=== PATIENT | female | born 1940 | race Caucasian/White ===

== ENCOUNTER → 2017-01-20 | Outpatient (CLI) | payer OTHER, BC ==
[~2017-01-20] VITALS: Ht 144.8 cm; Wt 61.3 kg
[~2017-01-20] MED LIST: ASPIR 8181 MG PO; ASPIRIN325 PO; ATIVAN1 MG; ATIVAN1 MG PO; BENADRYL25 MG PO; BIOTIN5 M1 PO; BUSPAR PO; CALCIUM; CALCIUM 500+VI1 EACH PO; CALCIUM 600 +1 EAC1 PO; CIPRO500 MG PO; CYMBALTA60 MG PO; DULERA 100 MCG/13 GM INH; FLECTOR PATCH1 EA TP; GABAPENTIN100 MG PO; GLUCOSAMINE HC500 MG; GLUCOSAMINE HC500 MG PO; HYDROXYCHLOROQ200 M1 PO; IBUPROFEN 200200 M1 PO; LASIX 40 MG TAB40 M1; LASIX 40 MG TAB40 M1 PO; LIDODERM 5%1 PATC1 TRANSDERM; LIPITOR20 MG PO; LISINOPRIL2.5 MG; LISINOPRIL5 MG PO; MACROBID 100 M100 M1 PO; MIRALAX255 GM; MUCINEX D TABL1 EACH PO; MUCINEX TA600 MG/TA2 PO; MUCINEX600 MG; NEURONTIN 300300 M1 PO; NEXIUM40 MG PO; NITROGLYCERIN0.4 MG SUBLING; ONDANSETRON HCL4 M2 PO; ONE DAILY WOME0.4 MG PO; OXYCODONE HCL15 MG PO; PEPCID20 MG PO; PERCOCET 10-321 EACH PO; PLAVIX 75 MG TA75 M1 PO; POTASSIUM20; POTASSIUM20 PO; ROBAXIN500 MG PO; SENOKOT-S1 TA1; SYNTHROID50 MCG PO; TOPROL XL25 MG PO; TYLENOL325 MG PO; UNICOMPLEX M TA1 TA1 PO; VALTREX 500 MG500 M1 PO; VALTREX 500 MG500 MG PO; VESICARE 5 MG TA5 MG PO; VESICARE10 M1 PO; VITAMIN D1000 UNI1; VITAMIN D400 UNIT PO; VITAMIN E400 UNIT PO; ZETIA10 MG PO; [UNRECOGNIZED DRUG - OTHER] PO
--- NOTE | ~2017-01-20 | HPC ---
[facility] [place] [address] PAIN MANAGEMENT CONSULTATION Name: SANDHYA NAVARRO Room #: REG MINDY VenturaJoseJaun.#: [id number] Admission: 01/20/17 Attend Phys: Matthew Stack MD Discharge: Date of : 38 Report #: [id number] THIS REPORT FOR: //name// CC: Pamela Stack DATE OF SERVICE: 01/20/2017 Followup visit for chronic back pain, postlaminectomy. The patient returns today with her sister and is here for management of high risk medication. She has ongoing pain across her low back, but has been managing this very nicely with exercise as well as with opioid medication prescribed right at the [facility] guideline of 90 mg a day. She tolerates it well, safeguards her medications, and denies side effects. She takes her medication ____ as prescribed. There have been no red flag behaviors. In addition to this, she takes gabapentin. We have been varying the dose depending on how she feels. She has more side effects with this and she does with any other medicine including dizziness. She had an episode of flu in the month of October, when she was very dizzy. We reduced her gabapentin at that time and she is fluctuating back and forth between about 600 to 900 mg a day. Instructions were provided on how to use gabapentin going forward. Today, her affect is pleasant. She does seem as depressed as she did it last visit. Her pain score is 7/10 with pain across her low back and radiating into her left leg with standing and weightbearing. Her blood pressure is 120/73, heart rate 74, respirations 16. BMI is 29. IMPRESSION: 1. Low back pain with radiculopathy, post-laminectomy. She has also had an extensive fusion followed by complications with infection 8 years ago and has recovered nicely. 2. Osteoarthritis status post knee replacement. 3. Coronary artery disease with stent. 4. Gastroesophageal reflux disease. PLAN: I reviewed medications under terms of our opioid agreement. RECOMMENDATIONS: Today, I reviewed important issues related to the use of opioids and other potent, centrally-acting medications for the treatment of pain. Rationale for the use of medication is to reduce pain and improve daily activities and function. These activities, individualized for each patient, [address] [address] PAIN MANAGEMENT CONSULTATION Name: SANDHYA NAVARRO Room #: REG [facility].#: [id number] Admission: 01/20/17 Attend Phys: Matthew Stack MD Discharge: Date of : 39 Report #: [id number] include simple activities of daily living, improvement in work capabilities, increased involvement in family and other social activities. Improvement in psychosocial elements of chronic pain were discussed in a broader conversation of wellness that included nonpharmacologic measures to manage pain, suffering and efforts to enhance well being. Remaining as physically active as possible for age and ability plays a tremendous role in the management of chronic pain. This was encouraged. We reviewed potential medication side effects, toxicities and drug interactions, employing strategies to manage problems identified. Pain medications have potential side effects, and patients should exercise caution when operating machinery or driving. We discussed in detail the dramatic increase in the Emergency Room visits, hospitalizations and deaths related to misuse and diversion of prescription pain medications in [place]. This opioid crisis in [place] requires both physicians and patients alike to safely use all medications. Safeguarding of medications by keeping them safely locked up or out of reach of others is a critical patient responsibility to ensure that medications are not diverted to others. We discussed the Center for Disease Control (CDC) guidelines for safe use of opioids and the efforts to standardize opioid prescribing to prevent complications. These include guidelines which we strive to meet. They include the standardization of various opioids to morphine milligram equivalents (MME) and also stress the use of the lowest effective dose. Efforts to remain within daily maximum dosing guidelines will also be of focus of treatment. Addiction versus therapeutic use of medication includes routine followup, single prescriber, single pharmacy and the use of random drug screens and other tools to ensure safe prescribing. A signed agreement outlying these issues has been reviewed and remains on the patient chart. Prescriptions were provided today under terms of that agreement, and followup for her is planned in 3 months. Followup visit is planned in 3 months. By: [id number] Matthew Stack MD /jose
[2017-01-20 15:04] VITALS: BP 120/73
== END | disposition home or self-care (01) ==
LOC: PAIN 07:16
DX: M96.1 Postlaminectomy syndrome, not elsewhere classified (principal); M17.9 Osteoarthritis of knee, unspecified; I25.10 Atherosclerotic heart disease of native coronary artery without angina pectoris; K21.9 Gastro-esophageal reflux disease without esophagitis; Z98.890 Other specified postprocedural states; G89.29 Other chronic pain

== ENCOUNTER → 2017-02-22 | Outpatient (CLI) | payer OTHER, BC | LOC: RAD 17:15 | DX: M19.011 Primary osteoarthritis, right shoulder (principal) ==

== ENCOUNTER → 2017-05-12 | Outpatient (CLI) | payer OTHER, BC ==
[~2017-05-12] VITALS: Ht 149.9 cm; Wt 60.0 kg
--- NOTE | ~2017-05-12 | HPC ---
[facility] [address] [address] [place] [address] PAIN MANAGEMENT CONSULTATION Name: SANDHYA NAVARRO Room #: REG [facility] Kari.#: [id number] Admission: 05/12/17 Attend Phys: Reji Nguyen DO Discharge: Date of : 39 Report #: [id number] THIS REPORT FOR: //name// CC: Pamela Nguyen HISTORY OF PRESENT ILLNESS: The patient is a delightful 76-year-old female typically treated by Dr. Matthew Stack for chronic lumbar radiculopathy status post decompressive laminectomy, post-laminectomy syndrome, axial back pain requiring complex medication management. Comorbidities include osteoarthritis, now status post right total knee arthroplasty, gastroesophageal reflux, coronary artery disease. The patient returns to pain clinic today in the company of her sister who is supportive. She has continued to use her current pain medication including oxycodone 15 mg up to 4 a day, Cymbalta effectively 400 mg t.i.d. (one 300 mg tablet and one 100 mg tablet t.i.d.). She uses Cymbalta 60 mg daily as well. Last seen in the pain clinic back in December. She did suffer a fall in January, was seen in the ER for some facial trauma, this has resolved nicely. She returns to pain clinic today noting medications are generally providing sufficient analgesia for her to participate in activities of daily living. She rates her subjective pain score 7/10, primarily throbbing, tender sensation in the low back, exacerbated with standing too long. She remains physically active, albeit modestly so. 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 PHYSICAL EXAMINATION: Shows 76-year-old female, BMI is 26.7 kilograms per meter squared. Vital signs stable as noted in the EMR. Rises from chair using armrest. Gait is little antalgic, some diffuse axial back tenderness though balance is reasonably good. Lower extremity strength is diminished, but symmetric. We reviewed the fact that opiate medications are being used to provide analgesia adequate to support activities of daily living, not attempting to achieve a specific pain score on the 0-10 Visual Analog Scale. The current opiate medications are providing sufficient analgesia to allow the patient to participate in activities of daily living. The patient is not exhibiting any aberrant behavior suggestive of drug diversion. The patient is not having any adverse reactions to medications. The patient is not suffering from daytime somnolence or mental acuity changes. The patient is managing opiate-induced constipation with appropriate tcdr-psy-kxcyfke agents and dietary considerations. The patient was counseled on concern for caution with operating a motor vehicle while using opiate medications. [address] [address] PAIN MANAGEMENT CONSULTATION Name: SANDHYA NAVARRO Room #: REG CLParth Vazquez#: [id number] Admission: 05/12/17 Attend Phys: Reji Nguyen DO Discharge: Date of : 39 Report #: [id number] A physical exam was performed and the patient's functional status was evaluated. All patients with back pain were advised against the bed rest greater than 4 days and were advised to return to normal activities. Pain score assessment was noted and the treatment plan was reviewed with the patient. All current medications, both prescribed and OTC were reviewed and reconciled on the electronic medical record. Tobacco screening was accomplished and smoking cessation was advised when indicated. BMI was noted and diet/exercise modification was recommended for all patients following outside normal parameters. I reviewed with the patient today their responsibilities to safeguard prescription medications, reviewed their responsibility to utilize medications only as prescribed by the physician. They are to seek and receive pain medications only from 1 physician group ( [facility]). They are to use 1 pharmacy and keep the clinic informed if they change pharmacies. Their responsibilities include making followup visits in a timely fashion and to avoid abrupt discontinuation of medication usage. Their responsibilities further include bringing their medications (bottles from the pharmacy with residual pills) to the visit for possible confirmation of pill counts and the patient understands it is their responsibility to submit to random drug screens to ensure both that the medications prescribed are present, and that no other controlled substances are present. All prescriptions provided today were generated electronically. ASSESSMENT: Lumbar radiculopathy status post decompressive laminectomy requiring complex medication management, stable on baseline medication. RECOMMENDATION: Renew oxycodone 15 mg 4 times a day, gabapentin one 300 mg tablet and one 100 mg together t.i.d. for a total of 40 mg t.i.d. I have taken the liberty of writing for this prescription along with Cymbalta 60 mg, all prescriptions quantity sufficient for 3 months. Follow up with Dr. Matthew Stack. <ELECTRONICALLY SIGNED> By: Reji Nguyen DO 05/13/17 1202 1615 19 Reji Nguyen DO /nt
[2017-05-12 14:59] VITALS: BP 105/62
== END | disposition home or self-care (01) ==
LOC: PAIN 07:43
DX: M54.16 Radiculopathy, lumbar region (principal); M96.1 Postlaminectomy syndrome, not elsewhere classified; M54.9 Dorsalgia, unspecified; G89.29 Other chronic pain; M19.90 Unspecified osteoarthritis, unspecified site; K21.9 Gastro-esophageal reflux disease without esophagitis; I25.10 Atherosclerotic heart disease of native coronary artery without angina pectoris; Z96.651 Presence of right artificial knee joint; Z98.890 Other specified postprocedural states; Z95.810 Presence of automatic (implantable) cardiac defibrillator; Z88.0 Allergy status to penicillin; Z88.8 Allergy status to other drugs, medicaments and biological substances; Z79.899 Other long term (current) drug therapy; Z79.82 Long term (current) use of aspirin

== ENCOUNTER 2017-11-06 16:40 | Emergency (ER) | payer OTHER, BC ==
[~2017-11-06] VITALS: Ht 152.4 cm; Wt 56.7 kg
--- NOTE | ~2017-11-06 | EKG ---
[address] [address] ELECTROCARDIOGRAM REPORT Name: SANDHYA NAVARRO Room #: [facility] M.R.#: [id number] Admission: Attend Phys: Discharge: Date of : 39 Report #: [id number] THIS REPORT FOR: //name// [facility] ED Test Date: 2017-11-06 Test Time: 16:53:51 Pat Name: SANDHYA NAVARRO Department: Room: Gender: F Curriculum Consultant: [facility] : 1940 Requested By: Barbara Garcia Order Number: [id number] MD: Measurements Intervals [place] Rate: 81 P: 63 KS: 152 QRS: -12 QRSD: 87 T: 60 QT: 457 QTc: 531 Interpretive Statements Sinus rhythm Anteroseptal infarct, old Prolonged QT interval Compared to ECG 11/28/2016 21:14:53 Prolonged QT interval now present Myocardial infarct finding still present [email or web address] By: 52 52 Epiphany MD Swapna /EPI
[~2017-11-06 16:40] MED LIST changes: +LIDODERM1 EACH TRANSDERM
[2017-11-06 18:28] LABS: HEMATOCRIT 41.1 % (37.0-47.0); HEMOGLOBIN 13.4 gm/dL (12.0-15.0); MCH 31.9 pg (26.0-34.0); MCHC 32.6 g/dL (28.0-37.0); MCV 97.9 fL (80.0-100.0); RBC 4.2 mil/uL (4.20-5.00); RDW 13.1 % (10.5-14.5); WBC 7.4 thou/uL (4.0-11.0)
[2017-11-06 18:35] LABS: ANION GAP 5 mmol/L (7-16); BUN 16 mg/dL (7-18); CALCIUM 8.6 mg/dL (8.5-10.1); CHLORIDE 102 mmol/L (98-107); CO2 31 mmol/L (21-32); CREATININE 0.6 mg/dL (0.6-1.0); GLUCOSE 90 mg/dL (74-106); POTASSIUM 3.5 mmol/L (3.5-5.1); SODIUM 138 mmol/L (136-145)
[2017-11-06 18:44] LABS: ALBUMIN 2.9 g/dL (3.4-5.0); SGOT 24 U/L (15-37); SGPT 23 U/L (30-65); TOTAL BILIRUBIN 0.2 mg/dL (<0.1-1.0); TOTAL PROTEIN 6.7 g/dL (6.4-8.2); TROPONIN-I < 0.04 ng/mL (<0.06)
[2017-11-06] MEDS ORDERED: ROBAXIN 750 MG750 M1 PO (19:22)
[2017-11-06 19:50] VITALS: BP 130/88
[2017-11-07] MEDS ORDERED: OXYCODONE HCL15 MG PO (15:18)
[2017-11-07] MEDS ORDERED: LIDODERM1 EACH TRANSDERM (15:18)
[2017-11-07] MEDS ORDERED: NEURONTIN 300300 M1 PO (15:24)
[2018-01-23] MEDS ORDERED: PROBIOTIC1 EAC1 PO (15:07)
[2018-01-23] MEDS ORDERED: LIDODERM1 EACH TRANSDERM (15:33)
[2018-01-23] MEDS ORDERED: NEURONTIN 300300 M1 PO (15:33)
[2018-01-23] MEDS ORDERED: OXYCODONE HCL15 MG PO ×2 (15:33)
[2018-04-03] MEDS ORDERED: PREDNISONE 10 M10 MG PO (14:36)
[2018-04-03] MEDS ORDERED: ROBAXIN 750 MG750 M1 PO (14:47)
[2018-04-03] MEDS ORDERED: OXYCODONE HCL15 MG PO ×5 (14:47→14:58)
[2018-04-03] MEDS ORDERED: NEURONTIN 300300 M1 PO ×2 (14:47→14:58)
[2018-04-03] MEDS ORDERED: LIDODERM1 EACH TRANSDERM ×2 (14:55→14:58)
[2018-06-08] MEDS ORDERED: LIDODERM1 EACH TRANSDERM (14:59)
[2018-06-08] MEDS ORDERED: NEURONTIN 300300 M1 PO (14:59)
[2018-06-08] MEDS ORDERED: OXYCODONE HCL15 MG PO ×2 (14:59)
[2018-06-09] MEDS ORDERED: ZANAFLEX2 MG PO (15:05)
[2018-07-24] MEDS ORDERED: NEURONTIN 300300 M1 PO (15:27)
[2018-07-24] MEDS ORDERED: OXYCODONE HCL15 MG PO ×2 (15:27)
[2018-07-24] MEDS ORDERED: ALIGN4 MG PO (15:30)
== END 2017-11-06 22:00 | disposition home or self-care (01) ==
LOC: ER 16:40
PROVIDERS: Physician Assistant
DX: M62.830 Muscle spasm of back (principal); Z88.1 Allergy status to other antibiotic agents; Z88.5 Allergy status to narcotic agent; Z88.0 Allergy status to penicillin; Z88.8 Allergy status to other drugs, medicaments and biological substances; Z87.891 Personal history of nicotine dependence

== ENCOUNTER → 2017-11-07 | Outpatient (CLI) | payer OTHER, BC ==
[~2017-11-07] VITALS: Ht 152.4 cm; Wt 56.7 kg
[~2017-11-07] MED LIST changes: +ALIGN4 MG PO; +IBU400 MG PO; +PREDNISONE 10 M10 MG PO; +PROBIOTIC1 EAC1 PO; +ROBAXIN 750 MG750 M1 PO; +ZANAFLEX2 MG PO
--- NOTE | ~2017-11-07 | HPC ---
[facility] [address] [address] [address] PAIN MANAGEMENT CONSULTATION Name: SANDHYA NAVARRO Room #: REG [facility]..#: [id number] Admission: 11/07/17 Attend Phys: Matthew Stack MD Discharge: Date of : 39 Report #: [id number] THIS REPORT FOR: //name// CC: Pamela Baptiste MD DATE OF SERVICE: 11/07/2017 A 45 minute follow up for counseling regarding chronic pain, medication and depression. The patient is in the clinic today with her sister. She is here today for renewal of her pain medication. She was in the hospital Emergency Room just 24 hours ago with back pain. It was felt to be musculoskeletal and she was given a muscle relaxant, which she has not filled. She had questions about Robaxin, which I answered for her today. She has been stable now for many years on an opioid agreement, which includes oxycodone 15 mg 4 times daily for a total of 60 mg or 90 morphine milligrams. In addition, she takes Cymbalta 60 mg daily and gabapentin 300 mg t.i.d. and this has been helpful. Today, her pain that was present during her visit to the Emergency Room yesterday is much improved. She describes it as a 7, but it is across the mid back. Yesterday, it was radiating around into the anterior chest wall that no longer is present. She describes it as an aching and is not affected much by position. There is some tenderness in the muscle, but this does not appear to be a compression fracture by history, x-ray or exam as noted below. The patient was distraught today regarding family matters. Her son who is 48, has been living with her up until the last year or two. He is very successful working for ___, but has now purchased his own home, moved out and has been living with a male psychiatric aides teacher. The patient was very upset about this move and had a long discussion today. I provided her with Kenny Silverman's poem on children to help as we discussed the difficulties and concerns with children even at the age of 48. PQRS review, the patient does suffer from osteoarthritis involving the knees and hips. She does not use tobacco. She does take opioids 90 morphine milligram equivalents per day within the CDC guideline for chronic intractable use by a pain specialist and the contract that she has signed was reviewed, the CDC guidelines and opioid crisis discussed. She is a fall risk, having fallen yesterday at the Emergency Room getting out of the car even with the assistance of her sister. We have talked about cautious use of all of her medications particularly the new medication recommended by the Emergency Room. I reviewed [facility] [address] [place] [address] PAIN MANAGEMENT CONSULTATION Name: SANDHYA NAVARRO Room #: REG MINDY Pierce.#: [id number] Admission: 11/07/17 Attend Phys: Matthew Stack MD Discharge: Date of : 39 Report #: [id number] all of her medications. We discussed her chronic medical conditions, which have included treatment in the past for hypertension, which is currently well controlled. She has not established with a new primary care physician since Dr. Urbina has moved on and she has asked for some assistance in locating a physician in the [facility]. PHYSICAL EXAMINATION: She is depressed and distraught today about personal issues described above. Blood pressure 127/63, heart rate 67 and O2 sat is 96%. BMI is 24.4. She is able to independently move from sitting to standing position and walks with a stable gait. She has pain across her lumbosacral segment. There is no pain along the thoracic or lumbar spine to percussion to suggest compression fracture. There is mild muscle tension noted. Straight leg raising bilaterally is positive for some mild radiculopathy. She has some generalized weakness of the lower extremities. IMPRESSION: 1. Chronic intractable back pain, post-laminectomy syndrome. 2. Management of opioid medication. 3. Chronic depression and anxiety. 4. Status post right knee replacement. RECOMMENDATIONS: 1. Continue on current medications as prescribed. 2. Counseling regarding resolution of family issues. 3. Follow up in the pain clinic in 3 months. This is a 45 minute consultation. <ELECTRONICALLY SIGNED> By: Matthew Stack MD 12/21/17 1640 [id number] Matthew Stack MD /nt
[2017-11-07 14:49] VITALS: BP 127/63
== END ==
LOC: PAIN 07:07
DX: M96.1 Postlaminectomy syndrome, not elsewhere classified (principal); F11.90 Opioid use, unspecified, uncomplicated; F32.9 Major depressive disorder, single episode, unspecified; F41.9 Anxiety disorder, unspecified; Z96.651 Presence of right artificial knee joint

== ENCOUNTER → 2017-12-01 | Outpatient (CLI) | payer OTHER, BC | LOC: RAD 17:03 | DX: R05 Cough (principal); J45.909 Unspecified asthma, uncomplicated ==

== ENCOUNTER → 2017-12-14 | Outpatient (CLI) | payer OTHER, BC | LOC: RAD 15:12 | DX: J45.909 Unspecified asthma, uncomplicated (principal) ==

== ENCOUNTER → 2018-01-23 | Outpatient (CLI) | payer OTHER, BC ==
[~2018-01-23] VITALS: Ht 152.4 cm; Wt 56.9 kg
[~2018-01-23] MED LIST changes: -ALIGN4 MG PO; -IBU400 MG PO; -PREDNISONE 10 M10 MG PO; -ZANAFLEX2 MG PO
--- NOTE | ~2018-01-23 | HPC ---
[facility] [address] [address] PAIN MANAGEMENT CONSULTATION Name: SANDHYA NAVARRO Room #: REG Par[facility] M..#: [id number] Admission: 01/23/18 Attend Phys: Matthew Stack MD Discharge: Date of : 39 Report #: [id number] THIS REPORT FOR: //name// CC: Matthew Baptiste MD DATE OF SERVICE: 01/23/2018 Followup visit for post-laminectomy syndrome. The patient presents back to the pain clinic today for counseling regarding her chronic pain, renewal of her medication. We spent a good deal of time today talking about her depression. She suffered with depression since the of her and after her surgery, which was complicated and was also unfortunately dealt with complications of infection. It took her nearly a year to improve and she has remained sad and limited somewhat since that time. She does have the ongoing support of her sister and her torie in [place] has also been of comfort to her. She worries about many things having to do with her health and also worries about her son, which was discussed at last visit and we discussed some about those things today as well. These are all part of the biopsychosocial components of pain. Her physical pain is continued along the back for the most part. The pain is described as a deep aching sensation along her scar. She has less pain into her legs at this time. She scores her pain as an 8/10, worsened by prolonged standing. She uses heat in addition to medication. PHYSICAL EXAMINATION: GENERAL: She is a pleasant, but obviously depressed female. VITAL SIGNS: Blood pressure 108/73, heart rate is 86, respirations 16, oxygen saturation 100% on room air. BMI 24.5. CHEST: Clear to auscultation with no wheezing. CARDIAC: Rhythm is regular with a slight murmur heard in diastole. ABDOMEN: Soft. MUSCULOSKELETAL: The scar across her back is tender that radiates up her back actually between the scapula with tenderness throughout. She has pain also into her low back and into her hips and legs. Straight leg raising is positive. She is able to walk independently with a stable gait. She is a fall risk. IMPRESSION: 1. Chronic back pain, post-laminectomy with complications. 2. Management of opioid medication. She is at the upper levels of the CDC guideline at 90 morphine milligram equivalents per day. 3. [place] [address] PAIN MANAGEMENT CONSULTATION Name: SANDHYA NAVARRO [id number] Admission: 01/23/18 Attend Phys: Matthew Stack MD Discharge: Date of : 38 Report #: [id number] 4. Osteoarthritis, status post right knee replacement. PLAN: 1. I renewed medication for her oxycodone 15 mg, which she takes 4 times daily for a total of 60 mg of oxycodone equaling 90 morphine equivalents. 2. Counseling regarding depression. Suggested that she discuss with Dr. Baptiste, clinical psychologist or psychiatrist and perhaps rotation to a different antidepressant. 3. Follow up in the pain clinic in 3 months. Important issues regarding the opioid crisis, CDC guideline and her use of medication in the safest possible manner were discussed before discharge. We will follow up in 3 months and I will discuss her case with Dr. Baptiste. By: [id number] Matthew Stack MD /nt
[2018-01-23 15:09] VITALS: BP 108/73
== END ==
LOC: PAIN 07:25
DX: G89.29 Other chronic pain (principal); M96.1 Postlaminectomy syndrome, not elsewhere classified; F32.9 Major depressive disorder, single episode, unspecified; F41.9 Anxiety disorder, unspecified; F11.90 Opioid use, unspecified, uncomplicated; M19.90 Unspecified osteoarthritis, unspecified site; Z96.651 Presence of right artificial knee joint

== ENCOUNTER → 2018-03-30 | Outpatient (CLI) | payer OTHER, BC ==
[~2018-03-30] MED LIST changes: +PREDNISONE 10 M10 MG PO
== END ==
LOC: RAD 13:37
DX: M47.812 Spondylosis without myelopathy or radiculopathy, cervical region (principal); R06.00 Dyspnea, unspecified

== ENCOUNTER → 2018-04-03 | Outpatient (CLI) | payer OTHER, BC ==
[~2018-04-03] VITALS: Ht 152.4 cm; Wt 55.6 kg
--- NOTE | ~2018-04-03 | HPC ---
[facility] [address] [address] PAIN MANAGEMENT CONSULTATION Name: SANDHYA NAVARRO Room #: REG Parth BeniJaun.#: [id number] Admission: 04/03/18 Attend Phys: Matthew Stack MD Discharge: Date of : 38 Report #: [id number] THIS REPORT FOR: //name// CC: Matthew Baptiste DATE OF SERVICE: 04/03/2018 Followup visit for post-laminectomy syndrome. The patient is here today a little bit early for her renewals, but the appointments are tight towards the end of the month, so they are here early. There have been no significant changes since I last saw her in January. She is now following with Dr. Missael Baptiste, very pleased with the excellent attention and care that he is providing her. She complains of back pain at a level of 8/10 despite the use of her medications, but is grateful for the medications. She is able to get around, do her exercise and is active in the home. 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 Her depression seems better today. We talked about her family including her son who will soon be moving out. PQRS shows that she has a history of osteoarthritis and spondylosis. She has a BMI of 23.9 and has had some recent weight loss. She will continue to follow this with Dr. Baptiste. She is not a fall risk and has not fallen in the last 3 months. She remains on Plavix and was counseled about cautious use of any medications that may worsen her potential for bleeding. She should avoid nonsteroidal anti-inflammatory drugs. She is also treated for hypertension. She is on an opioid agreement for the higher doses of medications that I provide for her. We reviewed all medications in terms of our opioid agreement today as well as the CDC guideline. PHYSICAL EXAMINATION: GENERAL: Pleasant female, less depression noticed today. VITAL SIGNS: Are as noted above and BMI. CHEST: Clear today. She has recently been treated by Dr. Lopez. CARDIAC: Rhythm is regular, slight diastolic murmur. ABDOMEN: Soft. MUSCULOSKELETAL: Scar in the back with tenderness consistent with her post-laminectomy syndrome. IMPRESSION: 1. Post-laminectomy syndrome, chronic back pain with some radiculopathy. [facility] [address] [place] [address] PAIN MANAGEMENT CONSULTATION Name: SANDHYA NAVAROR Room #: REG [facility].#: [id number] Admission: 04/03/18 Attend Phys: Matthew Stack MD Discharge: Date of : 38 Report #: [id number] 2. Management of opioid medication in terms of the CDC guidelines. She is right about 90 morphine milligram equivalents per day. 3. Chronic and recurring depression and anxiety. She is stable today. 4. Osteoarthritis, status post knee replacement. PLAN: I renewed her medication in terms of our agreement. I plan to see her back in late June. Drug testing will be done at my discretion. By: [id number] MD elieser Riddle
[2018-04-03 14:27] VITALS: BP 112/57
== END ==
LOC: PAIN 07:39
DX: G89.29 Other chronic pain (principal); M54.5 Low back pain; M54.16 Radiculopathy, lumbar region; M16.0 Bilateral primary osteoarthritis of hip; F11.90 Opioid use, unspecified, uncomplicated; Z79.899 Other long term (current) drug therapy; Z87.891 Personal history of nicotine dependence

== ENCOUNTER → 2018-05-10 | Outpatient (CLI) | payer OTHER, BC | LOC: RAD 17:39 | DX: M19.012 Primary osteoarthritis, left shoulder (principal); R10.9 Unspecified abdominal pain; R19.7 Diarrhea, unspecified; R53.1 Weakness ==

== ENCOUNTER 2018-06-03 14:47 | Emergency (ER) | payer OTHER, BC ==
[~2018-06-03] VITALS: Ht 144.8 cm; Wt 52.2 kg
[2018-06-03] MEDS ORDERED: IBU400 MG PO (16:28)
[2018-06-03] MEDS ORDERED: ROBAXIN500 MG PO (16:28)
[2018-06-08] MEDS ORDERED: OXYCODONE HCL15 MG PO ×2 (14:59)
[2018-06-08] MEDS ORDERED: NEURONTIN 300300 M1 PO (14:59)
[2018-06-08] MEDS ORDERED: LIDODERM1 EACH TRANSDERM (14:59)
== END 2018-06-03 17:14 ==
LOC: ER 14:47
DX: M25.512 Pain in left shoulder (principal); M62.830 Muscle spasm of back; G89.29 Other chronic pain; M54.9 Dorsalgia, unspecified; Z87.891 Personal history of nicotine dependence; Z88.1 Allergy status to other antibiotic agents; Z88.5 Allergy status to narcotic agent; Z88.4 Allergy status to anesthetic agent; Z88.8 Allergy status to other drugs, medicaments and biological substances; Z88.0 Allergy status to penicillin; Z91.048 Other nonmedicinal substance allergy status; Z95.0 Presence of cardiac pacemaker

== ENCOUNTER → 2018-06-08 | Outpatient (CLI) | payer OTHER, BC ==
[~2018-06-08] VITALS: Ht 152.4 cm; Wt 56.4 kg
[~2018-06-08] MED LIST changes: +IBU400 MG PO; +ZANAFLEX2 MG PO
--- NOTE | ~2018-06-08 | HPC ---
[facility] [place] [address] PAIN MANAGEMENT CONSULTATION Name: SANDHYA NAVARRO Room #: REG Parth Pierce.#: [id number] Admission: 06/08/18 Attend Phys: Matthew Stack MD Discharge: Date of : 38 Report #: [id number] THIS REPORT FOR: //name// CC: Matthew Baptiste MD DATE OF SERVICE: 06/08/2018 Followup visit for osteoarthritis, chronic low back pain, post-laminectomy syndrome. The patient was recently in the Emergency Room for pain in her shoulder. It came on rather abruptly in the middle of the night. It was bad enough that her sister called 911. There was some concern at first that this may be a sign of a coronary event; however, all workup was negative and it was determined to be a flare of right shoulder osteoarthritis. She was referred to Dr. Kranthi Dalal. She saw Dr. Dalal who assessed her and felt that she had inflammation of the shoulder and bursa and his nurse provided her a shoulder injection, which has provided some improvement. Her number one complaint; however, has always been her low back pain and she has had radiculopathy. Her history of back surgery and complications is well documented in this record. That was many years ago and she is now recovered, but left with post-laminectomy pain with radiculopathy. She suffers from depression, but seems good today. Her son is moving out of her home as soon as his house is remodeled and will be just down the street from her. We talked about this blessing. She also has the blessing of her sister who is constantly at her side and provides both moral and physical support. PQRS review shows that she is 5 feet tall, 122 pounds for a BMI of 23.9. Blood pressure 112/57, heart rate 71 and respirations 16. Pain intensity is 8/10. She is not a fall risk at this time. She is on a blood thinner, Plavix. She has a history of hypertension and under treatment by Dr. Baptiste. She is on an opioid agreement with her current clinic and is at low risk for addiction. PHYSICAL EXAMINATION: GENERAL: Continuation of physical exam reveals a pleasant female without depression, anxiety or overmedication. She was loquacious, outgoing and pleasant today. CHEST: Clear. [facility] [address] [place] [address] PAIN MANAGEMENT CONSULTATION Name: SANDHYA NAVARRO Room #: REG MINDY VenturaJoseJaun.#: [id number] Admission: 06/08/18 Attend Phys: Matthew Stack MD Discharge: Date of : 39 Report #: [id number] CARDIAC: Rhythm is regular with slight diastolic murmur. ABDOMEN: Soft. MUSCULOSKELETAL: She has tenderness in her left shoulder, but range of motion with abduction and external and internal rotation is quite good. She has tenderness across her scar from the low back surgery and positive straight leg raising discomfort bilaterally in the lower extremities. IMPRESSION: 1. Post-laminectomy syndrome with radiculopathy. 2. Osteoarthritis involving bilateral knees, status post knee replacement and now with recent exacerbation of left shoulder pain, likely osteoarthritis and degenerative. 3. Management of high risk medication under terms of an opioid agreement. Her role in safeguarding medication was reviewed. We also checked her prescribing in the [place] board of pharmacy PDMP. There have been no additional prescriptions for narcotics other than those provided through our clinic. Dr. Baptiste provides all her other medications. PLAN: I renewed her medication for her under terms of written opioid agreement. She uses gabapentin 300 mg 3 times a day from myself as well as oxycodone 15 mg 4 times a day for MME of 90. She has no significant side effects other than mild constipation. Dr. Baptiste provides her with lorazepam and although that combination can be concerning, she has been on it long enough that she has shown good tolerance and there have been no complications with its use for anxiety. Followup visit is planned in 3 months. All medications renewed. By: [id number] 0551 Matthew Stack MD /nt
[2018-06-08 14:38] VITALS: BP 104/60
== END ==
LOC: PAIN 07:18
DX: M54.16 Radiculopathy, lumbar region (principal); M17.0 Bilateral primary osteoarthritis of knee; Z79.899 Other long term (current) drug therapy

== ENCOUNTER → 2018-07-24 | Outpatient (CLI) | payer OTHER, BC ==
[~2018-07-24] VITALS: Ht 162.6 cm; Wt 54.8 kg
[~2018-07-24] MED LIST changes: +ALIGN4 MG PO
--- NOTE | ~2018-07-24 | HPC ---
[facility] [address] [place] [address] PAIN MANAGEMENT CONSULTATION Name: SANDHYA NAVARRO Room #: REG Parth Kari.#: [id number] Admission: 07/24/18 Attend Phys: Matthew Stack MD Discharge: Date of : 39 Report #: [id number] THIS REPORT FOR: //name// CC: Matthew Baptiste DATE OF SERVICE: 07/24/2018 Followup visit for post-laminectomy syndrome. The patient is here today with her ever present sister, Maria Esther. She is doing fairly well. She has lost some weight. Her BMI is down to 20.7 now. She should not lose any additional weight. She reports that her pain score is a 6/10, which actually is a fairly reasonable number for her. She has been undergoing physical therapy for her shoulders and has made some additional improvement. I noted that she had made improvement at her last visit and I noted today that her pain is less and her range of motion in the right shoulder is much better. She continues to complain of low back pain, however, this is something that she has now become accustomed to and is well tolerant of. We will do course aggressively provided with medication to allow her to tolerate this. Her depression is better today. PQRS REVIEW: The patient is a pleasant female, no signs of depression or anxiety. She is 5 feet 4 inches, 120 pounds for a BMI of 20.7. She does have a history of osteoarthritis. Her blood pressure 105/55, heart rate 77, respirations 14, O2 sat 97%. Pain intensity 6/10. She is a fall risk and has fallen in the last 3 months. She needs her sister's stable arm to help her. She needs to be cautious because she is on the blood thinner, Plavix. She has a history of hypertension. She is at low risk for addiction, but has signed an opioid agreement on September 2016 and we reviewed the importance of safeguarding all medications. SOCIAL HISTORY: She denies alcohol and tobacco. IMPRESSION: 1. Post-laminectomy syndrome with radiculopathy. 2. Osteoarthritis, bilateral knees and shoulders. Her shoulders have responded nicely to physical therapy. 3. Management of high risk medications under terms of an opioid agreement. I reviewed her responsibilities and safeguarding her medications. We reviewed [address] [address] PAIN MANAGEMENT CONSULTATION Name: SANDHYA NAVARRO Room #: REG [facility] Kari.#: [id number] Admission: 07/24/18 Attend Phys: Matthew Stack MD Discharge: Date of : 39 Report #: [id number] our opioid agreement, the CDC guidelines. I have checked on the [place] prescription drug monitoring program and there are no unsuspected entries. Followup visit planned in 3 months. RECOMMENDATIONS: At discharge, she was given prescriptions for gabapentin 300 mg 3 times daily, OxyIR 15 mg 4 times daily. By: [id number] MD elieser Riddle
[2018-07-24 14:57] VITALS: BP 105/55
== END ==
LOC: PAIN 07:40
DX: M96.1 Postlaminectomy syndrome, not elsewhere classified (principal); M17.0 Bilateral primary osteoarthritis of knee; M19.012 Primary osteoarthritis, left shoulder; M19.011 Primary osteoarthritis, right shoulder; Z79.899 Other long term (current) drug therapy

== ENCOUNTER 2018-08-16 17:47 | Emergency (ER) | payer OTHER, BC ==
[~2018-08-16] VITALS: Ht 147.3 cm; Wt 51.9 kg
== END 2018-08-16 19:11 | disposition home or self-care (01) ==
LOC: ER 17:47
DX: S09.90XA Unspecified injury of head, initial encounter (principal); I25.2 Old myocardial infarction; G89.29 Other chronic pain; Z95.810 Presence of automatic (implantable) cardiac defibrillator; Z79.899 Other long term (current) drug therapy; Z88.0 Allergy status to penicillin; Z88.1 Allergy status to other antibiotic agents; Z88.5 Allergy status to narcotic agent; Z88.8 Allergy status to other drugs, medicaments and biological substances; Z87.891 Personal history of nicotine dependence; W18.09XA Striking against other object with subsequent fall, initial encounter; Y93.01 Activity, walking, marching and hiking; Y92.89 Other specified places as the place of occurrence of the external cause; Y99.8 Other external cause status

== ENCOUNTER → 2018-08-17 | Outpatient (CLI) | payer OTHER, BC ==
[~2018-08-17] VITALS: Ht 162.6 cm; Wt 52.0 kg
--- NOTE | ~2018-08-17 | HPC ---
[facility] [address] [place] [address] PAIN MANAGEMENT CONSULTATION Name: SANDHYA NAVARRO Room #: REG MINDY Kari.#: [id number] Admission: 08/17/18 Attend Phys: Matthew Stack MD Discharge: Date of : 39 Report #: [id number] THIS REPORT FOR: //name// CC: Matthew Baptiste DATE OF SERVICE: 08/17/2018 Followup visit for chronic intractable pain. The patient and her sister, Lisseth, are here today at a special request for followup visit because she fell. She was getting up from the table, taking some dishes to kitchen when she tripped on a carpet. She fortunately landed forward, striking her left gnosticism area. Lisseth states that it was nearly miraculous. When she fell, she landed directly on a pillow including her head. There was no immediate sequela and in fact the patient asked to get up and continue washing the dishes, but a more cautious position was taken by her sister due to her use of Plavix. Over the course of next 24 hours, she was observed carefully, but ultimately went to the Emergency Room for a CAT scan, which proved to be negative. At the time of that visit, she was complaining of bit of shoulder pain, but that has resolved. She has been taking pain medication carefully and cautiously under terms of an opioid agreement. We had a long discussion today about her, also chronic use of clonazepam for anxiety disorder. This began almost 10 years ago. It has been helpful. With the use of that, she seems to be more calm. She does not cry as often. She seems relaxed throughout the day and we feel it plays an important role. We understand that there is an interaction between benzodiazepines and opioids of which she is on both; however, she has shown good tolerance to the effects with no evidence of overmedication sedation. It was clear after discussion of her fall that it was not related to medication. I think it is reasonable for her to continue on the combination. I reviewed all of her medications today. She has had no changes. ALLERGIES: Reviewed as well. She has been a fall risk as noted and we need to be cautious. She needs to be cautious due to a scissor gait, which is noted on physical exam. PHYSICAL EXAMINATION: VITAL SIGNS: Her blood pressure is 104/42. She may have some slight orthostasis. She is instructed also to get up and down slowly. Pain intensity is a 3. Her blood thinner, Plavix is noted. She was told to be cautious with any falls [facility] [address] [place] [address] PAIN MANAGEMENT CONSULTATION Name: SANHDYA NAVARRO Room #: REG [facility]#: [id number] Admission: 08/17/18 Attend Phys: Matthew Stack MD Discharge: Date of : 39 Report #: [id number] because Plavix can cause bleeding that might not stop. Her hypertension is currently well controlled. Her opioids are doing a good job and she needs no change in dose at this time. Her opioid agreement was signed on 09/29/2016. She is at very low risk for addiction. She has osteoarthritis of both hips, knees and shoulders. IMPRESSION: 1. Chronic intractable pain with multiple pain generators. 2. Anxiety disorder, chronic. 3. Post-laminectomy syndrome. 4. Recent fall with no evidence of injury. 5. Management of high risk medications. 6. Hypertension. PLAN: Follow up in the pain clinic in 3 months. Follow up with Dr. Missael Baptiste for all primary care issues. By: 1647 [id number] Matthew Stack MD /nt
[2018-08-17 14:57] VITALS: BP 104/42
== END ==
LOC: PAIN 06:59
DX: G89.4 Chronic pain syndrome (principal); M96.1 Postlaminectomy syndrome, not elsewhere classified; F41.8 Other specified anxiety disorders; I10 Essential (primary) hypertension; W19.XXXA Unspecified fall, initial encounter; Z79.899 Other long term (current) drug therapy

== ENCOUNTER 2018-09-13 16:36 | Emergency (ER) | payer OTHER, BC ==
[~2018-09-13] VITALS: Ht 144.8 cm; Wt 51.7 kg
[2018-09-13 19:33] VITALS: BP 108/61
== END 2018-09-13 19:34 | disposition home or self-care (01) ==
LOC: ER 16:36
DX: R07.81 Pleurodynia (principal); G89.29 Other chronic pain; M54.9 Dorsalgia, unspecified; Z87.891 Personal history of nicotine dependence; Z88.1 Allergy status to other antibiotic agents; Z88.5 Allergy status to narcotic agent; Z88.4 Allergy status to anesthetic agent; Z88.0 Allergy status to penicillin; Z91.048 Other nonmedicinal substance allergy status; Z95.0 Presence of cardiac pacemaker; W01.0XXA Fall on same level from slipping, tripping and stumbling without subsequent striking against object, initial encounter; Y92.89 Other specified places as the place of occurrence of the external cause; Y93.89 Activity, other specified; Y99.8 Other external cause status

== ENCOUNTER → 2018-10-03 | Outpatient (CLI) | payer OTHER, BC ==
[~2018-10-03] VITALS: Ht 162.6 cm; Wt 53.1 kg
--- NOTE | ~2018-10-03 | HPC ---
[facility] [address] [address] PAIN MANAGEMENT CONSULTATION Name: SANDHYA NAVARRO Room #: REG MINDY Pierce.#: [id number] Admission: 10/03/18 Attend Phys: Matthew Stack MD Discharge: Date of : 39 Report #: [id number] THIS REPORT FOR: //name// CC: Matthew Baptiste DATE OF SERVICE: 10/03/2018 CHIEF COMPLAINT: Followup visit for concerns regarding left knee. The patient is here today because she was frightened that her left knee had been swelling and was painful. She is here today with her sister. She says the pain began worsening 2 days ago and is now constant and throbbing. She has been relieving it with elevation and ice. Pain is worse by weightbearing. She continues to exercise, however. She uses a stationary bike. This has been one of the keys to her remaining out of the hospital and functional. She is tearful today. Her functional assessment tool is 35/70. She has a lot of anxiety and history of depression. MEDICATIONS: Reviewed. Align, oxycodone 15 mg 4 times daily for chronic use and gabapentin for pain. All other medications remain unchanged. Other centrally acting medications include Cymbalta for depression and pain at 60 mg, BuSpar for anxiety 10 mg daily, lorazepam 1 mg p.r.n. 4 times daily. Her combination of benzodiazepine and opioid have been taken safely for many years. PHYSICAL EXAMINATION: Her affect is depressed and anxious. Her blood pressure is 135/85. Her heart rate is 72. Her BMI is 20.1. She is able to move from sitting to standing position, but needs assistance in walking and would be considered a fall risk. Tenderness of the knee is noted, but there is very minimal swelling at this time. She has some crepitus with extension and flexion. She denies use of tobacco or alcohol. She is on an opioid agreement well established. She understands her responsibilities. She is on no blood thinners at this time. IMPRESSION: Chronic pain, multiple pain generators including low back, post-laminectomy syndrome, chronic cervicalgia, left shoulder pain and left knee pain with swelling and tenderness. Osteoarthritis. Management of high risk medication. Fifteen minute followup visit today reassuring her that her current treatment in conservative fashion is reasonable and we will plan on seeing her back if the [address] [address] PAIN MANAGEMENT CONSULTATION Name: SANDHYA NAVARRO Room #: REG CL Kari.#: [id number] Admission: 10/03/18 Attend Phys: Matthew Stack MD Discharge: Date of : 39 Report #: [id number] pain worsens. Cortisone injection of the knee joint can be considered if she does not improve over the next few days. By: 1612 05 Matthew Stack MD /nt
== END ==
LOC: PAIN 10:00
DX: M54.5 Low back pain (principal); M54.2 Cervicalgia; M25.512 Pain in left shoulder; M25.562 Pain in left knee; G89.29 Other chronic pain; Z79.899 Other long term (current) drug therapy

== ENCOUNTER → 2018-10-31 | Outpatient (CLI) | payer OTHER, BC ==
[~2018-10-31] VITALS: Ht 144.8 cm; Wt 53.7 kg
[2018-10-31 13:06] VITALS: BP 112/65
--- NOTE | 2018-10-31 13:07 | NUR ---
Pain Clinic Assessment: 1. History of Osteoarthritis: yes History of Rheumatoid Arthritis: Not Applicable 2. Height: 4 ft. 9 in. 144.8 cm. Weight: 118.4 lb. oz. 53.706 kg. Patient's BMI: 25.6 3. Vital Signs: BP: 112/65 Pulse: 89 Resp: 18 Temp: 02 Sat: 99 ECG Mon: 4. Pain Intensity: 5 5. Fall Risk: Dizziness: N Needs help standing or walking: Y Fallen in the last 3 months: N Fall risk comments: 6. Patient on Blood Thinner: Clopidogrel Bisulf(Plavix 7. History of Hypertension: Y 8. Opioid Therapy greater than 6 weeks: Y Opiate Contract Signed: 09/29/16 9. Risk Assessment Tool Provided: LOW 10. Functional Assessment Tool: 11. Recreational Drug Use: Never Drug Type: Tobacco Use: Former Smoker Tobacco Type: Amount or Packs/day: How Many Years: Alcohol Use: No Frequency: Quant:
--- NOTE | 2018-11-01 08:00 | HPC ---
[facility] [address] [place] [address] PAIN MANAGEMENT CONSULTATION Name: RAMONSANDHYA Room #: REG [facility]#: [id number] Admission: 10/31/18 Attend Phys: Hoda Ballard Discharge: Date of : 39 Report #: [id number] THIS REPORT FOR: //name// CC: Hoda Baptiste DATE OF SERVICE: 10/31/2018 CHIEF COMPLAINT: Left knee pain, chronic back pain status post laminectomy syndrome. HISTORY OF PRESENT ILLNESS: The patient is a very pleasant 78-year-old female, returns to the pain clinic today for followup of her opioid medications. She is here today with Lilia, her sister. She tells me that she has been doing wonderful since Dr. Stack has put her on these medicines of her oxycodone up to 4 times a day and her gabapentin and lorazepam. She tells me that her pain score today is 5, which is very well in her mind and controlling her pain. She tells me that her pain is mostly in her low back and her left knee. It is a constant, throbbing pain. She denies any constipation. She tells me that she does take several different medications that control her constipation and she does not have daytime sleepiness. She would like a refill of her medications today. CURRENT ALLERGIES: TAPE, PENICILLIN, MORPHINE, CODEINE, NEOMYCIN, CLINDAMYCIN, BACTRIM, BACITRACIN, FENTANYL, DEMEROL. CURRENT LIST OF MEDICATIONS: OxyIR 15 mg 4 times a day, gabapentin 300 mg b.i.d., Lidoderm patch, Zetia, Plavix 75 mg daily, calcium, Caltrate, vitamin D3, Dulera, Pepcid, Mucinex, Benadryl, Valtrex, Cymbalta, VESIcare, Plaquenil, Nexium, aspirin, biotin, glucosamine, lisinopril, lorazepam, Lasix, potassium, Lipitor, folic acid, BuSpar, Synthroid, metoprolol. PQRS: The patient has osteoarthritis in her knees and shoulders and lower back. The patient denies rheumatoid arthritis. Height is 4 feet 9 inches, weight is 118, BMI is 25.6. Vital signs: Blood pressure 112/65, pulse is 89, respirations 18, oxygen sat is 99. Pain score is 5/10. Fall risk, she denies dizziness. Does need a little help with walking and standing and has not fallen in the last 3 months. The patient is on Plavix for blood thinner and she does take medicines for hypertension. Her opioid therapy is greater than 6 weeks, therefore, an opioid signed contract is on the chart. Her risk assessment tool is low. Her functional assessment is 35/70. The patient does not use any recreational drug use. She is a former smoker and does not drink alcohol. We did check the prescription monitoring system. The patient is filling appropriately for her medications and is on time for her medications. She tells me that Lilia safeguards all of her medicines. [address] [address] PAIN MANAGEMENT CONSULTATION Name: SANDHYA NAVARRO Room #: ASHLEE Vazquez#: [id number] Admission: 10/31/18 Attend Phys: Hoda Ballard Discharge: Date of : 39 Report #: [id number] PHYSICAL EXAMINATION: GENERAL: This is alert and orientated 78-year-old female who appears her stated age. Her affect is appropriate. HEENT: Normocephalic, atraumatic. Extraocular eye muscles are intact. Mucous membranes are moist. Her hearing is adequate. NECK: Without JVD or adenopathy. MUSCULOSKELETAL: The patient is able to move from sitting to standing position, but needs assistance with walking and would be considered a fall risk. Her sister does help her. She refuses to use a walker. Tenderness at her left knee is noted with no swelling. She does have crepitus with extension and flexion of her left knee. The patient complains of low back tenderness. IMPRESSION: 1. Chronic pain, multiple pain generators including low back, post-laminectomy syndrome, chronic cervicalgia. 2. Left shoulder pain, left knee pain with osteoarthritis. We reviewed the fact that opiate medications are being used to provide analgesia adequate to support activities of daily living, not attempting to achieve a specific pain score on the 0-10 Visual Analog Scale. The current opiate medications are providing sufficient analgesia to allow the patient to participate in activities of daily living. The patient is not exhibiting any aberrant behavior suggestive of drug diversion. The patient is not having any adverse reactions to medications. The patient is not suffering from daytime somnolence or mental acuity changes. The patient is managing opiate-induced constipation with appropriate nodp-gqe-kdwsroe agents and dietary considerations. The patient was counseled on concern for caution with operating a motor vehicle while using opiate medications. A physical exam was performed and the patient's functional status was evaluated. All patients with back pain were advised against the bed rest greater than 4 days and were advised to return to normal activities. Pain score assessment was noted and the treatment plan was reviewed with the patient. All current medications, both prescribed and OTC were reviewed and reconciled on the electronic medical record. Tobacco screening was accomplished and smoking cessation was advised when indicated. BMI was noted and diet/exercise modification was recommended for all patients following outside normal parameters. I reviewed with the patient today their responsibilities to safeguard prescription medications, reviewed their responsibility to utilize medications only as prescribed by the physician. They are to seek and receive pain medications only from 1 physician group ( [facility]). They are to use 1 pharmacy and keep the clinic informed if they change pharmacies. Their responsibilities include making followup visits in a timely fashion and to avoid abrupt discontinuation of medication usage. Their responsibilities further [facility] [address] [place] [address] PAIN MANAGEMENT CONSULTATION Name: SANDHYA NAVARRO Room #: REG CLI Kari.#: [id number] Admission: 10/31/18 Attend Phys: Hoda Ballard Discharge: Date of : 39 Report #: [id number] include bringing their medications (bottles from the pharmacy with residual pills) to the visit for possible confirmation of pill counts and the patient understands it is their responsibility to submit to random drug screens to ensure both that the medications prescribed are present, and that no other controlled substances are present. All prescriptions provided today were generated electronically. PLAN: 1. Treatment options were discussed with the patient today. She tells me that she has been doing very well on her current pain regimen, would like refills today. Script given of OxyIR 15 mg 1 p.o. q. 6 hours, #120 for release today, for an 8-week. Second medication, gabapentin 300 mg three times a day, #90 with 2 additional refills; Lidoderm patches 1 patch daily, #30 with 2 additional refills and lorazepam 1 mg q.i.d., #120 with one additional refill phoned into [facility]. 2. The patient and family member reminded to call when they fill her last medicine. Script for an appointment, so that she can get that filled in a timely fashion. The patient and family members are agreeable with this plan of care. The patient will be seen in 3-month time period. Today, collaboration of care given under the care of Dr. Matthew Stack. <ELECTRONICALLY SIGNED> By: Hoda Ballard 11/01/18 0800 [id number] Hoda Ballard /jose
== END ==
LOC: PAIN 07:13
DX: M17.12 Unilateral primary osteoarthritis, left knee (principal); M25.512 Pain in left shoulder; G89.29 Other chronic pain; M96.1 Postlaminectomy syndrome, not elsewhere classified; M54.2 Cervicalgia; Z79.899 Other long term (current) drug therapy

== ENCOUNTER → 2019-01-18 | Outpatient (CLI) | payer OTHER, BC ==
[~2019-01-18] VITALS: Ht 144.8 cm; Wt 50.3 kg
--- NOTE | ~2019-01-18 | HPC ---
[facility] [address] [place] [address] PAIN MANAGEMENT CONSULTATION Name: SANDHYA NAVARRO Room #: REG MINDY Pierce.#: [id number] Admission: 01/18/19 ������������������ Attend Phys: Matthew Stack MD Discharge: ������������������ Date of : 38 Report #: [id number] THIS REPORT FOR: //name// CC: Matthew Baptiste MD DATE OF SERVICE: 01/18/2019 Followup visit for chronic post-laminectomy syndrome, low back pain with radiculopathy. The patient returns to the clinic today with her sister. She is doing a bit better. At last visit, she was tearful and more depressed. She says that she is not as depressed. We talked a bit about her family and her son, Medardo, who has constantly been a worry for her. She seems to be more relaxed about him and he is traveling now in [place]. Her pain is a 5/10, mostly in her low back, but also her neck and left shoulder. She has some pain in her left knee, but continues to remain active. We have talked about the importance of remaining active as far as the pain management technique. She is living at home with her sister and is able to provide for her own self-care. The house is comfortable. They are preparing for loss in the family. Their 17-year-old small dog, Etelvina Ramires, will be passing soon from kidney failure. We discussed grieving. MEDICATIONS: Include lidocaine, gabapentin and oxycodone 15 mg up to every 6 hours. She also takes BuSpar for anxiety and lorazepam for anxiety. Both medications taken chronically seem to be helpful. She has no significant combination side effects with opioids. Her depression has been helpfully managed by Susi. All other medications are prescribed by Dr. Crum. We reviewed those and all medications were reconciled. She is on a blood thinner, Plavix. She is a fall risk. She has a history of hypertension. She denies use of tobacco or alcohol. PHYSICAL EXAMINATION: Her blood pressure 112/59, heart rate 73, respirations 16, O2 sat 97, BMI 24. She moves from sitting to standing position and uses her sister's arm for guidance and for support if she walks. As mentioned, she is a fall risk and her gait is antalgic and slow. She has weakness bilateral in the lower extremities. She has tenderness in multiple joints, mostly across the left shoulder and neck, also the left knee and into her low back. IMPRESSION: [facility] [address] [place] [address] PAIN MANAGEMENT CONSULTATION Name: SANDHYA NAVARRO Room #: REG [facility]#: [id number] Admission: 01/18/19 ������������������ Attend Phys: Matthew Stack MD Discharge: ������������������ Date of : 39 Report #: [id number] 1. Chronic intractable pain with multiple joint arthropathy and arthritis. 2. Post-laminectomy syndrome. 3. Management of high risk medications under terms of written opioid agreement. She is grateful for the pain relief that she receives and improves her day-to-day functioning and household activities. She denies side effects. She and her sister carefully monitor her medication, keep it locked and then there have been no unexpected entries in the prescription drug monitoring program. She has completed an opioid risk tool and is at low risk for addictions. I will perform drug screens at my discretion. Medications were renewed under terms of our agreement and I plan to see her at 3-month intervals. ��������������������������������������������� ���������������������������������������� By: ��������������������������������������������� [id number] Matthew Stack MD /nt
[2019-01-18 14:58] VITALS: BP 112/59
--- NOTE | 2019-01-18 15:10 | NUR ---
Pain Clinic Assessment: 1. History of Osteoarthritis: yes History of Rheumatoid Arthritis: Not Applicable 2. Height: 4 ft. 9 in. 144.8 cm. Weight: 111.0 lb. oz. 50.349 kg. Patient's BMI: 24.0 3. Vital Signs: BP: 112/59 Pulse: 73 Resp: 16 Temp: 02 Sat: 97 ECG Mon: 4. Pain Intensity: 5 5. Fall Risk: Dizziness: N Needs help standing or walking: Y Fallen in the last 3 months: N Fall risk comments: 6. Patient on Blood Thinner: Clopidogrel Bisulf(Plavix 7. History of Hypertension: Y 8. Opioid Therapy greater than 6 weeks: Y Opiate Contract Signed: 09/29/16 9. Risk Assessment Tool Provided: LOW 10. Functional Assessment Tool: 11. Recreational Drug Use: Never Drug Type: Tobacco Use: Former Smoker Tobacco Type: Amount or Packs/day: How Many Years: Alcohol Use: No Frequency: Quant:
== END ==
LOC: PAIN 12-25 07:12
DX: M96.1 Postlaminectomy syndrome, not elsewhere classified (principal); M54.16 Radiculopathy, lumbar region; G89.4 Chronic pain syndrome; Z79.891 Long term (current) use of opiate analgesic; Z79.899 Other long term (current) drug therapy

== ENCOUNTER → 2019-04-09 | Outpatient (CLI) | payer OTHER, BC ==
[~2019-04-09] VITALS: Ht 152.4 cm; Wt 52.2 kg
[2019-04-09 13:52] VITALS: BP 111/64
--- NOTE | 2019-04-09 14:13 | NUR ---
Pain Clinic Assessment: 1. History of Osteoarthritis: B/L HANDS BACK B/L LEGS B/L FEET B/L ARMS History of Rheumatoid Arthritis: Not Applicable 2. Height: 5 ft. 0 in. 152.4 cm. Weight: 115.0 lb. oz. 52.164 kg. Patient's BMI: 22.5 3. Vital Signs: BP: 111/64 Pulse: 61 Resp: 14 Temp: 02 Sat: 96 ECG Mon: 4. Pain Intensity: 4 5. Fall Risk: Dizziness: N Needs help standing or walking: N Fallen in the last 3 months: N Fall risk comments: 6. Patient on Blood Thinner: Clopidogrel Bisulf(Plavix 7. History of Hypertension: Y 8. Opioid Therapy greater than 6 weeks: Y Opiate Contract Signed: 09/29/16 9. Risk Assessment Tool Provided: LOW 10. Functional Assessment Tool: 35/ 11. Recreational Drug Use: Never Drug Type: Tobacco Use: Former Smoker Tobacco Type: Amount or Packs/day: How Many Years: Alcohol Use: No Frequency: Quant:
--- NOTE | 2019-04-10 13:45 | HPC ---
[facility] [place] [address] PAIN MANAGEMENT CONSULTATION Name: SANDHYA NAVARRO Room #: REG [facility] MJose.#: [id number] Admission: 04/09/19 ������������������ Attend Phys: Hoda Ballard Discharge: ������������������ Date of : 39 Report #: [id number] THIS REPORT FOR: //name// CC: Hoda Baptiste DATE OF SERVICE: 04/09/2019 CHIEF COMPLAINT: Chronic low back pain with radiculopathy, post-laminectomy syndrome. HISTORY OF PRESENT ILLNESS: This is a very pleasant 78-year-old female who returns to the pain clinic today with her sister for refill of her medications. She tells me that overall she is doing quite well and is here for medication renewal today. Her pain score is 4/10, mostly in her low back and left leg that radiates to her knee. She does occasionally have some shoulder pain in her left shoulder as well as neck pain. It is a constant throbbing pain she describes, worse with walking, said her medication regimen she feels that she is currently on is very beneficial. She has no problems with constipation as long as she takes some zjwa-bwg-ijhzcvv stool softeners and does not feel overly medicated. Her sister does keep track of all of her medications for her. She does show me a bottle of Biofreeze that she has been rubbing on her lower back as well. ALLERGIES: TAPE, PENICILLIN, MORPHINE, CODEINE, NEOMYCIN, CLINDAMYCIN, BACTRIM, BACITRACIN, FENTANYL, DEMEROL AND POLYMYXIN. CURRENT MEDICATIONS: Lorazepam 1 mg q.i.d. p.r.n., OxyIR 15 mg q.i.d. p.r.n., gabapentin 300 mg t.i.d., Lidoderm patches as needed, Plavix 75 mg daily, Caltrate, vitamin D3, Dulera inhaler, Pepcid 20 mg daily, Mucinex 600 mg b.i.d., Valtrex 500 mg daily, Cymbalta 60 mg daily, VESIcare 5 mg daily, Plaquenil 200 mg b.i.d., Nexium 40 mg b.i.d., aspirin 81 mg daily, biotin, glucosamine, lisinopril 5 mg daily, Lasix 40 mg daily, potassium daily, Lipitor 20 mg daily, folic acid, Synthroid 50 mcg daily, metoprolol 25 mg daily and Synthroid 50 mcg daily. PQRS: 1. The patient does have osteoarthritis in her knees, shoulders and lower back. She denies any rheumatoid arthritis in her hands, osteoarthritis in her hands. 2. Height is 5 feet, weight is 115, BMI is 22. 3. Vital signs: Blood pressure 111/64, pulse is 61, respirations 14, oxygen sat is 96. 4. Pain score is 4/10. 5. Fall risk: Denies dizziness. Does not need help walking or standing, has not fallen in the last 3 months. 6. She is on Plavix. She does take medicine for hypertension. 7. Opioid therapy is greater than 6 weeks; therefore, an opiate signed contract [address] [address] PAIN MANAGEMENT CONSULTATION Name: SANDHYA NAVARRO Room #: REG MINDY Vazquez#: [id number] Admission: 04/09/19 ������������������ Attend Phys: Hoda Ballard Discharge: ������������������ Date of : 39 Report #: [id number] is on the chart. 8. Her risk assessment tool is low. Functional assessment is 35/70. 9. Recreational drug use, she denies. She is a former smoker and does not drink alcohol. We did check the prescription monitoring system, filling appropriate. She does not have a drug screen on the chart that I am aware of. They tell me they safeguard her medications at all times. PHYSICAL EXAMINATION: GENERAL: This is an alert and orientated 78-year-old female who appears her stated age. Her affect is appropriate. HEENT: Normocephalic, atraumatic. Extraocular eye movements are intact. Her hearing is slightly diminished. NECK: Without JVD or adenopathy. MUSCULOSKELETAL: She is able to move from sitting to standing with the assistance of either her sister or nurse for support. She is a fall risk and her gait is antalgic and slow. She has weakness bilaterally in her lower extremities. She has tenderness in multiple joints in her lower back, left knee, left shoulder and neck. IMPRESSION: 1. Chronic pain, multiple pain generators including low back. 2. Post-laminectomy syndrome. 3. Chronic cervicalgia. 4. Left shoulder pain and left knee pain with osteoarthritis. 5. Management of high-risk medications under terms written opioid agreement. We reviewed the fact that opiate medications are being used to provide analgesia adequate to support activities of daily living, not attempting to achieve a specific pain score on the 0-10 Visual Analog Scale. The current opiate medications are providing sufficient analgesia to allow the patient to participate in activities of daily living. The patient is not exhibiting any aberrant behavior suggestive of drug diversion. The patient is not having any adverse reactions to medications. The patient is not suffering from daytime somnolence or mental acuity changes. The patient is managing opiate-induced constipation with appropriate hdfj-vvr-zvebiqn agents and dietary considerations. The patient was counseled on concern for caution with operating a motor vehicle while using opiate medications. A physical exam was performed and the patient's functional status was evaluated. All patients with back pain were advised against the bed rest greater than 4 days and were advised to return to normal activities. Pain score assessment was noted and the treatment plan was reviewed with the patient. All current medications, both prescribed and OTC were reviewed and reconciled on the electronic medical record. Tobacco screening was accomplished and smoking [facility] [address] [place] [address] PAIN MANAGEMENT CONSULTATION Name: SANDHYA NAVARRO Room #: REG [facility]#: [id number] Admission: 04/09/19 ������������������ Attend Phys: Hoda Ballard Discharge: ������������������ Date of : 39 Report #: [id number] cessation was advised when indicated. BMI was noted and diet/exercise modification was recommended for all patients following outside normal parameters. I reviewed with the patient today their responsibilities to safeguard prescription medications, reviewed their responsibility to utilize medications only as prescribed by the physician. They are to seek and receive pain medications only from 1 physician group ( [facility]). They are to use 1 pharmacy and keep the clinic informed if they change pharmacies. Their responsibilities include making followup visits in a timely fashion and to avoid abrupt discontinuation of medication usage. Their responsibilities further include bringing their medications (bottles from the pharmacy with residual pills) to the visit for possible confirmation of pill counts and the patient understands it is their responsibility to submit to random drug screens to ensure both that the medications prescribed are present, and that no other controlled substances are present. All prescriptions provided today were generated electronically. PLAN: 1. We discussed treatment options with the patient and her sister today. Her sister does monitor her medications carefully and keep them locked up and does dispense them on a daily basis. The patient feels like she is doing overall quite well with her current regimen. 2. Script was given today for OxyIR 15 mg q.i.d., #120 for today, 4-week release and 8-week release; lorazepam 1 mg q.i.d., #120 with 2 additional refills and gabapentin 300 mg t.i.d., #[address] Matthew Stack did come and see the patient and collaborated care. The patient will return in 3-month time period for prescription refill. ��������������������������������������������� <ELECTRONICALLY SIGNED> ���������������������������������������� By: Hoda Ballard ��������������������������������������������� 04/10/19 1345 1550 0030 Hoda Ballard /nt
== END ==
LOC: PAIN 06:58
DX: M54.16 Radiculopathy, lumbar region (principal); M17.12 Unilateral primary osteoarthritis, left knee; M25.512 Pain in left shoulder; G89.29 Other chronic pain; Z79.899 Other long term (current) drug therapy

== ENCOUNTER 2019-06-26 18:21 | Emergency (ER) | payer OTHER, BC ==
[~2019-06-26] VITALS: Ht 144.8 cm; Wt 52.2 kg
[2019-06-26 20:25] VITALS: BP 136/82
== END 2019-06-26 20:25 | disposition home or self-care (01) ==
LOC: ER 18:21
DX: S00.83XA Contusion of other part of head, initial encounter (principal); M19.90 Unspecified osteoarthritis, unspecified site; G89.29 Other chronic pain; M54.9 Dorsalgia, unspecified; Z95.0 Presence of cardiac pacemaker; Z88.0 Allergy status to penicillin; Z88.5 Allergy status to narcotic agent; Z88.6 Allergy status to analgesic agent; Z91.048 Other nonmedicinal substance allergy status; Z88.1 Allergy status to other antibiotic agents; Z88.8 Allergy status to other drugs, medicaments and biological substances; Z87.891 Personal history of nicotine dependence; W10.9XXA Fall (on) (from) unspecified stairs and steps, initial encounter; Y92.009 Unspecified place in unspecified non-institutional (private) residence as the place of occurrence of the external cause; Y93.89 Activity, other specified; Y99.8 Other external cause status

== ENCOUNTER → 2019-07-09 | Outpatient (CLI) | payer OTHER, BC ==
[~2019-07-09] VITALS: Ht 152.4 cm; Wt 52.2 kg
[2019-07-09 11:12] VITALS: BP 112/65
--- NOTE | 2019-07-09 11:27 | NUR ---
Pain Clinic Assessment: 1. History of Osteoarthritis: B/L HANDS BACK B/L LEGS B/L FEET B/L ARMS History of Rheumatoid Arthritis: Not Applicable 2. Height: 5 ft. 0 in. 152.4 cm. Weight: 115.0 lb. oz. 52.164 kg. Patient's BMI: 22.5 3. Vital Signs: BP: 112/65 Pulse: 70 Resp: 14 Temp: 02 Sat: 97 ECG Mon: 4. Pain Intensity: 4 5. Fall Risk: Dizziness: N Needs help standing or walking: N Fallen in the last 3 months: Y Fall risk comments: 6. Patient on Blood Thinner: Clopidogrel Bisulf(Plavix 7. History of Hypertension: Y 8. Opioid Therapy greater than 6 weeks: Y Opiate Contract Signed: 09/29/16 9. Risk Assessment Tool Provided: LOW 10. Functional Assessment Tool: 11. Recreational Drug Use: Never Drug Type: Tobacco Use: Former Smoker Tobacco Type: Amount or Packs/day: How Many Years: Alcohol Use: No Frequency: Quant:
--- NOTE | 2019-07-10 07:47 | HPC ---
[facility] [address] [place] [address] PAIN MANAGEMENT CONSULTATION Name: SANDHYA NAVARRO Room #: REG [facility] MJose.#: [id number] Admission: 07/09/19 ������������������ Attend Phys: Hoda Ballard Discharge: ������������������ Date of : 39 Report #: [id number] THIS REPORT FOR: //name// CC: Hoda Baptiste DATE OF SERVICE: 07/09/2019 CHIEF COMPLAINT: Chronic low back pain with radiculopathy, post-laminectomy syndrome. HISTORY OF PRESENT ILLNESS: This is a pleasant 78-year-old female who returns to the pain clinic today with her sister for refills of her medications that she uses to help treat her low back pain that does radiate into both of her legs as well as occasional left shoulder and neck pain. The patient is also telling me that today she is having some ankle and foot pain when she is standing for prolonged periods, her pain score today is 4/10, it is a constant throbbing pain, that her medications are very beneficial as well as resting. She tells me that she takes Benefiber, MiraLax and Senokot to help offset constipation issues that she does experience from her opioid use. She would like a refill of those medications today. ALLERGIES: TAPE, PENICILLIN, MORPHINE, CODEINE, NEOCIN, CLINDAMYCIN, BACITRACIN, FENTANYL, DEMEROL AND POLYMYXIN. CURRENT LIST OF MEDICATIONS: Gabapentin 300 mg 3 times a day, OxyIR 15 mg 4 times a day, lorazepam 1 mg 4 times a day, Lidoderm patch, Plavix, Caltrate, vitamin D, Dulera, Pepcid, Mucinex, Benadryl, Valtrex, Cymbalta, VESIcare, Nexium, aspirin, biotin, Zestril, Lasix, potassium, Lipitor, BuSpar, Synthroid, and Toprol. PQRS: 1. She has osteoarthritis in her knees, shoulders, and lower back. Denies any rheumatoid arthritis. 2. Height is 5 feet, weight is 115, and BMI is 22. 3. Vital signs 112/65, pulse is 70, respirations 14, oxygen sat is 22. 4. Pain score is 4/10. 5. Fall risk. Denies dizziness. Does need help walking and has fallen in the last 3 months, went to the Emergency Room, but did not have any significant injuries or broken bones. 6. The patient is on Plavix. She does have a history of hypertension. 7. Opioid therapy is greater than 6 weeks; therefore, an opioid signed contract is on the chart. Her risk assessment tool is low. Functional assessment is 35/70. 8. Recreational drug use, she denies. She is not a smoker and does not drink alcohol. [address] [address] PAIN MANAGEMENT CONSULTATION Name: SANDHYA NAVARRO Room #: REG CLI Taylor#: [id number] Admission: 07/09/19 ������������������ Attend Phys: Hoda Ballard Discharge: ������������������ Date of : 39 Report #: [id number] PHYSICAL EXAMINATION: GENERAL: This is alert and orientated 78-year-old female who appears her stated age. Her affect is appropriate. Placing her current pain score today at 4/10. HEENT: Normocephalic, atraumatic. Extraocular eye muscles are intact. NECK: Without adenopathy or JVD. She does have tenderness with palpation to the touch in her neck. MUSCULOSKELETAL: She is able to move from sitting to standing with assistance and does walk with assistance as well. Her gait is very antalgic and slow. She has weakness bilaterally in her lower extremities. Tenderness is present in multiple joints in her lumbar spine, left knee, left shoulder, bilateral ankles. IMPRESSION: 1. Chronic pain, multiple pain generators including lumbar spine. 2. Post-laminectomy syndrome. 3. Chronic cervicalgia. 4. Left shoulder pain and knee pain with osteoarthritis. 5. Management of high risk medications under terms of written opioid agreement. We reviewed the fact that opiate medications are being used to provide analgesia adequate to support activities of daily living, not attempting to achieve a specific pain score on the 0-10 Visual Analog Scale. The current opiate medications are providing sufficient analgesia to allow the patient to participate in activities of daily living. The patient is not exhibiting any aberrant behavior suggestive of drug diversion. The patient is not having any adverse reactions to medications. The patient is not suffering from daytime somnolence or mental acuity changes. The patient is managing opiate-induced constipation with appropriate swbj-tvm-mpggfmb agents and dietary considerations. The patient was counseled on concern for caution with operating a motor vehicle while using opiate medications. A physical exam was performed and the patient's functional status was evaluated. All patients with back pain were advised against the bed rest greater than 4 days and were advised to return to normal activities. Pain score assessment was noted and the treatment plan was reviewed with the patient. All current medications, both prescribed and OTC were reviewed and reconciled on the electronic medical record. Tobacco screening was accomplished and smoking cessation was advised when indicated. BMI was noted and diet/exercise modification was recommended for all patients following outside normal parameters. I reviewed with the patient today their responsibilities to safeguard prescription medications, reviewed their responsibility to utilize medications only as prescribed by the physician. They are to seek and receive pain medications only from 1 physician group ( [facility]). They are to use 1 pharmacy and keep the clinic informed if they change pharmacies. Their [facility] [address] [place] [address] PAIN MANAGEMENT CONSULTATION Name: SANDHYA NAVARRO [id number] Admission: 07/09/19 ������������������ Attend Phys: Hoda Ballard Discharge: ������������������ Date of : 39 Report #: [id number] responsibilities include making followup visits in a timely fashion and to avoid abrupt discontinuation of medication usage. Their responsibilities further include bringing their medications (bottles from the pharmacy with residual pills) to the visit for possible confirmation of pill counts and the patient understands it is their responsibility to submit to random drug screens to ensure both that the medications prescribed are present, and that no other controlled substances are present. All prescriptions provided today were generated electronically. PLAN: 1. We discussed treatment options with the patient today. The patient finds the medications very beneficial. She does keep active as she is able with the medicines that we provide. She would like refills of her OxyIR 15 mg, #120 given for today for an 8-week release. This places the patient at 90 morphine mEq according to the CDC guidelines. 2. Ativan 1 mg, #120 with 2 additional refills was also provided. The patient has been on this medication for a long time with her opioids and has been stable and has not had any adverse effects. 3. Refill for gabapentin 300 mg #90 with 2 additional refills as well. 4. The patient is seen in collaboration with Dr. Matthew Stack. The patient will follow up in 3 months' time period and instructed to call for an appointment when she fills her last prescription. ��������������������������������������������� <ELECTRONICALLY SIGNED> ���������������������������������������� By: Hoda Ballard ��������������������������������������������� 07/10/19 0747 [id number] [id number] Hoda Ballard /nt
== END ==
LOC: PAIN 06:55
DX: M54.16 Radiculopathy, lumbar region (principal); M96.1 Postlaminectomy syndrome, not elsewhere classified; M54.2 Cervicalgia; G89.29 Other chronic pain; M17.12 Unilateral primary osteoarthritis, left knee; M16.12 Unilateral primary osteoarthritis, left hip; Z88.8 Allergy status to other drugs, medicaments and biological substances; Z88.0 Allergy status to penicillin; Z79.899 Other long term (current) drug therapy; Z79.82 Long term (current) use of aspirin

== ENCOUNTER → 2019-11-01 | Outpatient (CLI) | payer OTHER, BC ==
[~2019-11-01] VITALS: Ht 152.4 cm; Wt 53.5 kg
[~2019-11-01] MED LIST changes: +LORAZEPAM 0.50.5 MG PO
--- NOTE | ~2019-11-01 | HPC ---
[facility] [place] [address] PAIN MANAGEMENT CONSULTATION Name: SANDHYA NAVARRO Room #: REG MINDY Pierce.#: [id number] Admission: 11/01/19 Attend Phys: Matthew Stack MD Discharge: Date of : 38 Report #: [id number] THIS REPORT FOR: //name// CC: Matthew Baptiste MD DATE OF SERVICE: 11/01/2019 Followup visit for chronic pain, post-laminectomy syndrome, failed back. The patient is here today with her sister. They come together at each visit. She has turned 79 since I last saw her! She continues to do well and has not been hospitalized or in the Emergency Room now for some time. She still suffers from chronic anxiety disorder, depression, and chronic pain. She has managed fairly well with the medications provided. She does not have significant side effects and is grateful for the pain relief and reduction in anxiety with the medications provide for her. She has shown no misuse or overuse. We have debated in the clinic tapering her lorazepam or her oxycodone, but given her age and her stability, I have decided essentially to not rock the boat. She does not show any evidence of misuse and at this stage, I do not see a downside to continue her on the medications as long as a standard position and she safeguards them. We have discussed some of the concerns regarding benzodiazepines and opioids, but she clearly has shown an ability to take them safely. She denies significant side effects at this time other than mild constipation, which is treated with MiraLax and Senokot. PQRS: Positive for osteoarthritis in multiple joints including her spondylitic spine, shoulders and knees. She has a BMI of 22, which is stable. Blood pressure 118/62, heart rate 87, respirations 14, and O2 sat is 95. Pain intensity 5/10 today. She is not a fall risk, although she needs some assistance from her sister oftentimes taking her arm when she walks. She is on Plavix and is not a candidate for any injection therapies. She is treated for hypertension by Dr. Baptiste. Her opioid agreement was initially signed several years ago. We re-did it about 2-3 years ago. She is considered at low risk for addiction, is clearly dependent on these centrally acting medications for pain, sedation, and treatment of anxiety. Her functional assessment score is not bad at 35. She denies tobacco or alcohol. IMPRESSION: 1. Chronic intractable back pain, post-laminectomy syndrome. [facility] [address] [place] [address] PAIN MANAGEMENT CONSULTATION Name: SANDHYA NAVARRO [facility] #: [facility] [id number] Admission: 11/01/19 Attend Phys: Matthew Stack MD Discharge: Date of : 38 Report #: [id number] 2. Chronic cervicalgia. 3. Diffuse arthropathies with osteoarthritis, worse in the left shoulder and chronic knee pain, bilateral. 4. Management of high risk medications under terms of an opioid agreement. Reviewed all her medications, discussed the four A's. She is carefully safeguarding her medication and managing side effects. She will continue to refill her medications at the same pharmacy, which I helped provide for her electronically. A followup visit is scheduled in the pain clinic in 3 months. By: 1721 0059 Matthew Stack MD /nt
[2019-11-01 14:37] VITALS: BP 118/62
--- NOTE | 2019-11-01 15:12 | NUR ---
Pain Clinic Assessment: 1. History of Osteoarthritis: B/L HANDS BACK B/L LEGS B/L FEET B/L ARMS History of Rheumatoid Arthritis: Not Applicable 2. Height: 5 ft. 0 in. 152.4 cm. Weight: 118.0 lb. oz. 53.524 kg. Patient's BMI: 23.0 3. Vital Signs: BP: 118/62 Pulse: 87 Resp: 14 Temp: 02 Sat: 95 ECG Mon: 4. Pain Intensity: 5 5. Fall Risk: Dizziness: N Needs help standing or walking: N Fallen in the last 3 months: N Fall risk comments: 6. Patient on Blood Thinner: Clopidogrel Bisulf(Plavix 7. History of Hypertension: Y 8. Opioid Therapy greater than 6 weeks: Y Opiate Contract Signed: 09/29/16 9. Risk Assessment Tool Provided: LOW 10. Functional Assessment Tool: 35/ 11. Recreational Drug Use: Never Drug Type: Tobacco Use: Former Smoker Tobacco Type: Amount or Packs/day: How Many Years: Alcohol Use: No Frequency: Quant:
== END ==
LOC: PAIN 06:49
DX: G89.4 Chronic pain syndrome (principal); M96.1 Postlaminectomy syndrome, not elsewhere classified

== ENCOUNTER → 2020-01-28 | Outpatient (CLI) | payer OTHER, BC ==
[~2020-01-28] MED LIST changes: +LORAZEPAM 1 MG T1 MG PO; +ROXICODONE15 M1 PO; +ROXICODONE15 MG PO
--- NOTE | ~2020-01-28 | HPC ---
[facility] [place] [address] PAIN MANAGEMENT CONSULTATION Name: SANDHYA NAVARRO Room #: REG MINDY Pierce.#: [id number] Admission: 01/28/20 Attend Phys: Matthew Stack MD Discharge: Date of : 38 Report #: [id number] THIS REPORT FOR: cc: Missael Baptiste MD, Stanley P. MD Morgan, Richard L. MD ~ CC: Matthew Baptiste DATE OF SERVICE: 01/28/2020 TELEMEDICINE VISIT Telemedicine consultation beginning time 0253 hours, ending time 0310 hours, 17 minutes. CHIEF COMPLAINT: Chronic intractable severe back pain, status post laminectomy, opioid dependence for intractable pain. Complex medication management. HISTORY OF PRESENT ILLNESS: The patient is a longstanding patient of our clinic and I have seen her for many years. She is followed for chronic pain related to back pain, which is severe and dates back to the early 1999s. She became a patient of [facility] in 2006 and I have seen her in followup since that time. Her history is long and complicated over the many years, but she has been stable on a regimen of medications, which we have established and followed closely. She just passed her 79th birthday! She and her sister, Lilia, live together and both were present for the telemedicine visit today. Lilia and the patient both report that they are doing reasonably well, staying home. They have not been out of the house more than one time in the last month. They are receiving groceries, medications and other supplies from her son, Medardo, a 51-year-old who lives in [place]. They also have two housekeepers who come in to help with chores. They are keeping distance. They are following back on their torie, both strong Christians, they find great comfort in scriptures, particularly Psalm 91, which they discussed with me today! From a medical standpoint, she has fallen once since I last saw her. She struck her head, but suffered no additional symptoms. She did not lose consciousness nor did she suffer from any bruising or bleeding. She is on Plavix, so this is concerning. She has recovered completely and I think that storm has passed. Overall, her pain score is a 6/10. She denies any significant side effects. She is carefully keeping her medications safeguarded and her sister, Lilia [facility] [address] [place] [address] PAIN MANAGEMENT CONSULTATION Name: SANDHYA NAVARRO Room #: REG CL Taylor#: [id number] Admission: 01/28/20 Attend Phys: Matthew Stack MD Discharge: Date of : 38 Report #: [id number] is watching over them as well. They do not have a blood pressure machine at home, but she has had no orthostatic symptoms. Weight also appears to be stable. She is a fall risk as we have discussed, so her sister is being even more attentive and walking with her throughout the house. Her opioid agreement was reviewed today and we talked about the terms of our agreement and the use of the electronic prescribing system to provide her medicines. I also took time prior to her visit to review the prescription drug monitoring program information and there are no unexpected entries. We did once again discuss the combination of benzodiazepine and opioid, which is considered dangerous if taken acutely or in excessive dose. She has been on this combination so long without problems. We have felt it best to continue her at current doses. I did make one effort to taper earlier and it was unsuccessful. Neither sister smokes nor uses alcohol. IMPRESSION: 1. Chronic intractable back pain, post-laminectomy syndrome. 2. Multiple joint arthropathies and osteoarthritis, which has generally been worse in the shoulders and knees. 3. Management of high risk medications under terms of an opioid agreement. I electronically sent prescriptions off while we were on the phone. Confirmed the prescriptions had been delivered. I anticipate our future visits will be [id number] in 3 months. By: 1527 1545 Matthew Stack MD /nt
== END ==
LOC: PAIN 06:43
DX: M54.5 Low back pain (principal); F11.20 Opioid dependence, uncomplicated; Z79.899 Other long term (current) drug therapy

== ENCOUNTER → 2020-05-05 | Outpatient (CLI) | payer OTHER, BC ==
[~2020-05-05] MED LIST changes: +FISH OIL 1,0001 EAC9 PO; +VIBRAMYCIN 100100 MG PO
--- NOTE | ~2020-05-05 | HPC ---
[facility] [address] [address] PAIN MANAGEMENT CONSULTATION Name: SANDHYA NAVARRO Room #: REG MINDY Pierce.#: [id number] Admission: 05/05/20 Attend Phys: Matthew Stack MD Discharge: Date of : 39 Report #: [id number] THIS REPORT FOR: cc: Missael Baptiste MD, Stanley P. MD Morgan, Richard L. MD ~ CC: Matthew Baptiste DATE OF SERVICE: 05/05/2020 Telemedicine visit from 9:07-9:19, 12 minutes. DIAGNOSES: Chronic intractable back pain, post-laminectomy syndrome with radiculopathy, chronic depression, medication management. I had a nice discussion today with the patient and her sister, Lilia. She is a longstanding patient and we provide her with pain medication for palliation of chronic terrible intractable back pain and radiculopathy. She is grateful for the pain medication. Provides relief and allows her to function at a base level at home and keeps her pain at a level that she can tolerate it. In addition to her back pain, she also has what she describes as traveling arthritis. Her sister, Lilia, uses Biofreeze on these joints and this seems to be helpful in combination with medicine. Her only side effect from her medicine is constipation which she has managed very carefully with Senokot-S and that no longer is a problem. We see her at regular intervals and discuss the importance of keeping medicine safeguarded. It is mostly just the two of them. She had no recent falls, uses a walker in the house and has been quarantining carefully with the COVID-19 restrictions. Even groceries are being brought into the house for the two of them. There have been no Emergency Room visits, no hospitalizations. She does report that Dr. Baptiste has asked her to see Dr. Jemal Lopez for asthmatic bronchitis and they are going to his office today. They are concerned about going to the hospital and it will be a burden for them. Dr. Lopez's consultation, however, is important enough that they need to go. In discussing her medications today, she reports "I don't know what I do without the medications. I cannot function really without the pain relief." She has suffered from severe depression and pain is certainly one of the primary reason for her situational chronic pain and depression. She has other comorbidities including a pacemaker with a defibrillator, symptoms of congestive heart failure and hypertension. She is certainly at risk. [facility] [address] [place] [address] PAIN MANAGEMENT CONSULTATION Name: SANDHYA NAVARRO Room #: REG MINDY PierceJose#: [id number] Admission: 05/05/20 Attend Phys: Matthew Stack MD Discharge: Date of : 39 Report #: [id number] MEDICATIONS: Include benzodiazepine. Opioid-benzodiazepine combinations are risky, they are well aware of that. We have talked about using the lowest dose, but her anxiety is a problem and she will continue on lorazepam 0.5 mg to 1 mg up to 4 times a day. Her oxycodone is 15 mg taken 4 times daily. She also uses gabapentin 300 mg t.i.d. These are both chronic. I have reviewed her prescription drug monitoring program information and there are no unexpected entries. I am her only prescriber and her medicines were provided through a single pharmacy which delivers to her home. PHYSICAL EXAMINATION: Mostly based upon our discussion. Her voice sounds strong. She does sound to be a bit depressed. She is, however, grateful for her sister. She is grateful for her ability to remain isolated and comfortable throughout the COVID pandemic. IMPRESSION: 1. Chronic intractable pain with multiple pain generators including chronic low back pain with post-laminectomy syndrome and diffuse arthralgias and osteoarthritis. Generally worse in the shoulders, left worse than right, and bilateral knee pain. Chronic cervicalgia. 2. Depression and anxiety. These are managed currently well with medications. No adjustments required or necessary. 3. Hypertension, currently medicated. 4. Coronary artery disease with stent. 5. Gastroesophageal reflux disease. PLAN: Medicines were renewed electronically for her and I will continue to provide them for her at 2-month intervals. I would like to keep her out of the hospital if we can due to obvious risks with the ongoing virus pandemic and it is a challenge for them to get out safely and travel to and from the hospital. Followup visit planned by telemedicine visit. By: 1209 1247 Matthew Stack MD /nt
--- NOTE | 2020-05-05 08:59 | NUR ---
Pain Clinic Assessment: 1. History of Osteoarthritis: B/L HANDS BACK B/L LEGS B/L FEET B/L ARMS History of Rheumatoid Arthritis: Not Applicable 2. Height: ft. in. cm. Weight: lb. oz. kg. Patient's BMI: 3. Vital Signs: BP: Pulse: Resp: Temp: 02 Sat: ECG Mon: 4. Pain Intensity: 5 5. Fall Risk: Dizziness: Needs help standing or walking: Fallen in the last 3 months: Fall risk comments: 6. Patient on Blood Thinner: Clopidogrel Bisulf(Plavix 7. History of Hypertension: Y 8. Opioid Therapy greater than 6 weeks: Y Opiate Contract Signed: 09/29/16 9. Risk Assessment Tool Provided: LOW 10. Functional Assessment Tool: / 11. Recreational Drug Use: Never Drug Type: Tobacco Use: Former Smoker Tobacco Type: Amount or Packs/day: How Many Years: Alcohol Use: No Frequency: Quant:
== END ==
LOC: TELEPC 06:55 → PAIN 06:55
PROVIDERS: ATTEND Anesthesiology Pain Medicine
DX: M96.1 Postlaminectomy syndrome, not elsewhere classified (principal); G89.4 Chronic pain syndrome; M26.629 Arthralgia of temporomandibular joint, unspecified side; M25.561 Pain in right knee; M25.562 Pain in left knee; F41.8 Other specified anxiety disorders; I10 Essential (primary) hypertension; I25.10 Atherosclerotic heart disease of native coronary artery without angina pectoris; K21.9 Gastro-esophageal reflux disease without esophagitis

== ENCOUNTER → 2020-08-25 | Outpatient (CLI) | payer OTHER, BC ==
[~2020-08-25] MED LIST changes: +VOLTAREN GEL 1100 G1 TOP
--- NOTE | ~2020-08-25 | HPC ---
[facility] [address] [address] PAIN MANAGEMENT CONSULTATION Name: SANDHYA NAVARRO Room #: REG MINDY Pierce.#: [id number] Admission: 08/25/20 Attend Phys: Matthew Stack MD Discharge: Date of : 39 Report #: [id number] CC: Matthew Baptiste MD DATE OF SERVICE: 08/25/2020 TELEMEDICINE PAIN CLINIC EVALUATION TIME OF CONSULTATION: 03:21 through 03:46. I had a lengthy phone conversation today with the patient and her sister, Lilia, who is on the other line. The patient is a longstanding patient of the pain clinic and suffers from chronic pain, depression and anxiety. PAST MEDICAL HISTORY: As outlined throughout the record. She had significant complications following the spinal surgery, recovered and has been dealing with severe back and leg pain since. She is remaining active as possible; however, she has lost some weight over the last several months down to 114 pounds. She is encouraged to ride a stationary bicycle, which she does very slowly, but regularly up to 30 minutes at a time. Afterwards, she will use ice and finds this to be helpful. She has also been assisted by her sister, Lilia, who rubs Voltaren gel 3 times a day on her neck, shoulders and back. She uses no more than about half an inch on each location and I think this is below toxicity levels. She feels that it has been helpful. She follows with Dr. Missael Baptiste, who has been providing her with doxycycline periodically when she develop some wheeziness and has treated her previously for asthmatic bronchitis. This has generally been helpful. She had a consultation with Dr. Jemal Lopez also by telemedicine and he agreed. She has chronically suffered with depression and anxiety. Anxiety has been particularly severe and she has been on lorazepam 1 mg 4 times a day since 2007!, this in combination with her opioid medication and has not seemed to be overly sedating and we have tried to encourage the lowest effective dose of each medicine. Tapering has been trialled but for now both Lilia and the patient feel that she tolerates the medicines well and they are beneficial to her. They have been very careful about the COVID virus. They are wearing masks whenever they are outside of the house, which is rare. She has a son, Medardo, who is frequently in the house. They are a bit concerned because he has multiple exposures due to working out in a gym on a regular basis. They have discussed this with Medardo and do some social distancing. We asked for temperatures to be taken in the home. There was no evidence of fever. I do not have a blood pressure or heart rate. IMPRESSION: 1. Chronic intractable back pain, post-laminectomy syndrome. 2. Management of high risk medications under terms of written opioid agreement. PLAN: I did review her medications under the prescription drug monitoring program. There are no unexpected entries. I will renew her medicines for her now and continuing on release monthly for the next 3 months. I will be taking a personal medical leave of absence in the month of September for surgery and plan to be able to see them either in person or by Telemed in October or November. Follow up at that time. The patient and her sister are both longstanding, well-known patients to the clinic. They will call if there are any issues or trouble. By: [id number] Matthew Stack MD /nt
== END ==
LOC: TELEPC 07:08 → PAIN 13:40
PROVIDERS: ATTEND Anesthesiology Pain Medicine
DX: M54.9 Dorsalgia, unspecified (principal); G89.29 Other chronic pain; F41.8 Other specified anxiety disorders; M96.1 Postlaminectomy syndrome, not elsewhere classified; F11.20 Opioid dependence, uncomplicated

== ENCOUNTER → 2020-10-30 | Outpatient (CLI) | payer OTHER, BC ==
[~2020-10-30] MED LIST changes: +LIDODERM1 EACH TOP; +NEURONTIN 300M300 M2 PO
--- NOTE | ~2020-10-30 | HPC ---
[facility] [address] [address] PAIN MANAGEMENT CONSULTATION Name: SANDHYA NAVARRO Room #: REG [facility] M.Jaun.#: [id number] Admission: 10/30/20 Attend Phys: Hoda Ballard Discharge: Date of : 39 Report #: [id number] THIS REPORT FOR: cc: Missael Baptiste MD, Stanley P. MD Hocker,Hoda MARTE ~ DATE OF SERVICE: 10/30/2020 This is a telemed appointment, speaking with them from 11:45 to 12:05. CHIEF COMPLAINT: Chronic intractable back pain, post-laminectomy syndrome with radiculopathy. HISTORY OF PRESENT ILLNESS: This is a telemed appointment that I am speaking with Lilia the sister is aiding patient in some of her answers. The patient is today reporting her pain score of 2-3, telling me that it is very well controlled in her with the current medication. She reports pain in her entire back most significantly the lumbar area and radiating down her right leg. The patient does complain of some neck and shoulder pain as well. She has been utilizing [id number] Voltaren gel and occasionally using Lidoderm patches. She believes that these are beneficial in helping reduce some of this discomfort. Overall, she believes the medication is quite beneficial and would like refills today. I did question the patient on any activities that she is doing, any exercise. They have been mostly staying at home due to the COVID and isolating themselves there. She was utilizing a stationary bike, but had stopped that. Per her report, she is going to start the bike again. As I stated they have been staying in, the son has been going to the grocery store and doing errands for them. The patient reports her appetite has improved. She weighs 115 pounds and no further weight loss from the last time Dr. Matthew Stack had spoken with them. They are considering the COVID vaccination when it will become available to them, but they are unsure when that will happen. They will be in contact with Dr. Baptiste's office regarding the vaccination. ALLERGIES: PENICILLIN, MORPHINE, CODEINE, NEOMYCIN, CLINDAMYCIN, BACTROBAN, FENTANYL, DEMEROL, AND POLYMYXIN. CURRENT LIST OF MEDICATIONS: Doxycycline, fish oil, oxycodone 15 mg q.i.d., lorazepam half to 1 mg q.i.d., gabapentin 300 mg t.i.d., Lidoderm patch, Plavix, Caltrate, vitamin D, Dulera, Pepcid, valacyclovir, Cymbalta, VESIcare, Nexium, aspirin, biotin, glucosamine, lisinopril, Lasix, potassium, Lipitor, multivitamin, buspirone, levothyroxine, and Toprol. [address] [address] PAIN MANAGEMENT CONSULTATION Name: SANDHYA NAVARRO [id number] Admission: 10/30/20 Attend Phys: Hoda Ballard Discharge: Date of : 39 Report #: [id number] PQRS: 1. She is positive for osteoarthritis affecting multiple joints that is diffuse. She denies any rheumatoid arthritis. 2. Height, weight and vital signs are deferred due to a telemed appointment. Pain score is 2 to 3 today. Fall risk, denies dizziness. Does need assistance with ambulation. Her sister does help her. She is on Plavix as well as medication for hypertension. Her opioid therapy is greater than 6 weeks; therefore, an opioid signed contract is on the chart. Risk assessment is low. Functional assessment is 35/70. They deny recreational drugs or alcohol use. She is a former smoker. According to the prescription monitoring system, she is due to fill her medications early next week, filling them in a timely fashion. She does take a benzodiazepine as well as an opioid medication and is followed closely. We attempted to wean the benzodiazepine, but was unsuccessful. They do attempt the lowest most effective dose of half a tablet at that time. PHYSICAL EXAMINATION: This is a review of systems due to it being a telemed appointment. She is alert and oriented, answering my questions appropriately, rating her pain score 2-3 in the lumbar region that radiates down her legs occasionally have tenderness in the thoracic region she reports as well. She does need assistance for walking and utilizing her sister or a walker and she reports no falls recently. IMPRESSION: 1. Chronic pain with multiple pain generators including the lumbar spine. 2. Post-laminectomy syndrome. 3. Cervicalgia. 4. Management of high risk medications under written opioid agreement. PLAN: 1. We discussed treatment options with the patient today. The patient believes her current regimen is quite beneficial, rating her pain very low today. We will continue her on her oxycodone and Ativan sending 2 months of medications to the pharmacy electronically by Dr. Stack for these medications. 2. I will continue her on her Lidoderm patch. She last filled these in October, uses these very sparingly. When her neck is painful, they apply this medication and they requested refills today. 3. We also will continue her gabapentin 300 mg 3 times a day, #270 with one additional refill. I encouraged the patient to call in a timely fashion to make an appointment in 2 months. Hopefully, at that time, we will be able to see [facility] [address] [place] [address] PAIN MANAGEMENT CONSULTATION Name: SANDHYA NAVARRO Room #: REG MINDY Vazquez#: [id number] Admission: 10/30/20 Attend Phys: Hoda Ballard Discharge: Date of : 38 Report #: [id number] them in clinic and they need to schedule appropriately in a timely fashion. This telemed appointment was collaborated with Dr. Matthew Stack. By: 1230 1355 Hoda Ballard /nt
== END ==
LOC: TELEPC 12:03
PROVIDERS: ATTEND Clinical Nurse Specialist Adult Health
DX: G89.4 Chronic pain syndrome (principal); M96.1 Postlaminectomy syndrome, not elsewhere classified; M54.2 Cervicalgia; F11.20 Opioid dependence, uncomplicated; Z88.8 Allergy status to other drugs, medicaments and biological substances; Z79.899 Other long term (current) drug therapy

== ENCOUNTER 2020-12-05 15:29 | Emergency (ER) | payer OTHER, BC ==
[~2020-12-05] VITALS: Ht 152.4 cm; Wt 56.7 kg
[2020-12-05 16:48] LABS: ABSOLUTE NEUTROPHILS 4.6 thou/uL (1.4-8.2); BASOPHILS 0.6 % (0.0-2.0); EOSINOPHILS 0.1 % (0.0-3.0); HEMATOCRIT 42.6 % (37.0-47.0); LYMPHOCYTES 10.8 % (24.0-44.0); MCH 31.8 pg (26.0-34.0); MCHC 32.8 g/dL (28.0-37.0); MCV 97.1 fL (80.0-100.0); PLATELET COUNT 242 thou/uL (150-400); POLYS 77.5 % (36.0-66.0); RBC 4.39 mil/uL (4.20-5.00)
[2020-12-05 16:52] LABS: ANION GAP 5 mmol/L (7-16); BUN 9 mg/dL (7-18); CALCIUM 8.8 mg/dL (8.5-10.1); CHLORIDE 101 mmol/L (98-107); CO2 28 mmol/L (21-32); CREATININE 0.5 mg/dL (0.6-1.0); GLUCOSE 97 mg/dL (74-106); POTASSIUM 3.9 mmol/L (3.5-5.1); SODIUM 134 mmol/L (136-145)
[2020-12-05 17:01] LABS: ALBUMIN 2.7 g/dL (3.4-5.0); SGOT 32 U/L (15-37); SGPT 29 U/L (14-59); TOTAL BILIRUBIN 0.3 mg/dL (0.2-1.0); TROPONIN-I <0.06 ng/mL (<0.06)
[2020-12-05] MEDS ORDERED: ZETIA10 MG PO (17:24)
[2020-12-05 17:59] LABS: URINE BILIRUBIN NEGATIVE (Negative); URINE BLOOD 1+ (Negative); URINE COLOR YELLOW; URINE GLUCOSE-RANDOM* NEGATIVE (Negative); URINE KETONES 1+ (Negative); URINE PROTEIN (DIPSTICK) 1+ (Negative); URINE UROBILINOGEN 0.2 E.U./dl (0.2-1.0)
[2020-12-05 18:05] LABS: URINE CLARITY CLOUDY; URINE LEUKOCYTES-REFLEX 3+ (Negative); URINE NITRITE-REFLEX POSITIVE (Negative)
[2020-12-05 18:10] LABS: BACTERIA-REFLEX >30 Many /HPF (None Seen); CASTS None Seen /LPF (None Seen); CRYSTALS None Seen /LPF (None Seen); SQUAMOUS 0-3 Few /LPF (0-3); URINE RBC 3-10 Few /HPF (0-2); URINE WBC-REFLEX >25 Many /HPF (0-5)
[2020-12-05] MEDS ORDERED: KEFLEX500 M1 PO (19:06)
[2020-12-05 19:11] VITALS: BP 137/67
[2020-12-05] MEDS ORDERED: ZOFRAN ODT4 MG PO (19:23)
--- NOTE | 2020-12-06 07:51 | EKG ---
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: : 1940 Requested By: Jacob Camarena Order Number: [id number] MD: Medardo Montalvo Measurements Intervals Cando Rate: 78 P: 71 FL: 134 QRS: -17 QRSD: 99 T: 63 QT: 428 QTc: 488 Interpretive Statements Sinus rhythm Borderline left axis deviation Anteroseptal infarct, age indeterminate Compared to ECG 11/06/2017 16:53:51 Prolonged QT interval no longer present Myocardial infarct finding still present Electronically Signed On 12-06-2020 7:51:06 DIRECTOR INTEGRATED by Medardo Montalvo [email or web address] <ELECTRONICALLY SIGNED> By: Medardo Montalvo MD, [facility] 12/06/20 0751 D: [id number] Medardo Montalvo MD, FACC /EPI
== END 2020-12-05 19:25 | disposition home or self-care (01) ==
LOC: ER 15:29
PROVIDERS: Emergency Medicine
DX: N39.0 Urinary tract infection, site not specified (principal); I25.2 Old myocardial infarction; Z95.0 Presence of cardiac pacemaker; Z79.899 Other long term (current) drug therapy; Z79.82 Long term (current) use of aspirin; Z88.1 Allergy status to other antibiotic agents; Z88.5 Allergy status to narcotic agent; Z88.0 Allergy status to penicillin; Z91.048 Other nonmedicinal substance allergy status; Z87.891 Personal history of nicotine dependence

== ENCOUNTER → 2021-01-12 | Outpatient (CLI) | payer OTHER, BC ==
[~2021-01-12] VITALS: Ht 144.8 cm; Wt 51.3 kg
[~2021-01-12] MED LIST changes: +KEFLEX500 M1 PO; +LACTINEX CHEWA1 EACH PO; +ZOFRAN ODT4 MG PO
[2021-01-12 13:32] VITALS: BP 106/52
[2021-01-12 13:39] VITALS: BP 106/52
--- NOTE | 2021-01-12 13:49 | NUR ---
Pain Clinic Assessment: 1. History of Osteoarthritis: B/L HANDS BACK B/L LEGS B/L FEET B/L ARMS History of Rheumatoid Arthritis: Not Applicable 2. Height: 4 ft. 9 in. 144.8 cm. Weight: 113.0 lb. oz. 51.256 kg. Patient's BMI: 24.4 3. Vital Signs: BP: 106/52 Pulse: 86 Resp: 14 Temp: 02 Sat: 99 ECG Mon: 4. Pain Intensity: 3 5. Fall Risk: Dizziness: N Needs help standing or walking: N Fallen in the last 3 months: N Fall risk comments: 6. Patient on Blood Thinner: Clopidogrel Bisulf(Plavix 7. History of Hypertension: Y 8. Opioid Therapy greater than 6 weeks: Y Opiate Contract Signed: 09/29/16 9. Risk Assessment Tool Provided: LOW 10. Functional Assessment Tool: 35/ 11. Recreational Drug Use: Never Drug Type: Tobacco Use: Former Smoker Tobacco Type: Amount or Packs/day: How Many Years: Alcohol Use: No Frequency: Quant:
== END ==
LOC: PAIN 06:55
PROVIDERS: ATTEND Anesthesiology Pain Medicine
DX: F41.8 Other specified anxiety disorders (principal); G89.29 Other chronic pain; I25.10 Atherosclerotic heart disease of native coronary artery without angina pectoris; K21.9 Gastro-esophageal reflux disease without esophagitis; M19.90 Unspecified osteoarthritis, unspecified site; F11.20 Opioid dependence, uncomplicated; M43.20 Fusion of spine, site unspecified; Z88.8 Allergy status to other drugs, medicaments and biological substances; Z79.899 Other long term (current) drug therapy

== ENCOUNTER → 2021-03-17 | Outpatient (CLI) | payer OTHER, BC ==
[~2021-03-17] VITALS: Ht 144.8 cm; Wt 49.0 kg
[~2021-03-17] MED LIST changes: +NARCAN4 MG NARES
[2021-03-17 14:23] VITALS: BP 126/56
--- NOTE | 2021-03-17 14:38 | NUR ---
Pain Clinic Assessment: 1. History of Osteoarthritis: B/L HANDS BACK B/L LEGS B/L FEET B/L ARMS History of Rheumatoid Arthritis: Not Applicable 2. Height: 4 ft. 9 in. 144.8 cm. Weight: 108.0 lb. oz. 48.988 kg. Patient's BMI: 23.4 3. Vital Signs: BP: 126/56 Pulse: 86 Resp: 14 Temp: 02 Sat: 97 ECG Mon: 4. Pain Intensity: 3 5. Fall Risk: Dizziness: N Needs help standing or walking: Y Fallen in the last 3 months: N Fall risk comments: 6. Patient on Blood Thinner: Clopidogrel Bisulf(Plavix 7. History of Hypertension: Y 8. Opioid Therapy greater than 6 weeks: Y Opiate Contract Signed: 09/29/16 9. Risk Assessment Tool Provided: LOW 10. Functional Assessment Tool: 35/ 11. Recreational Drug Use: Never Drug Type: Tobacco Use: Former Smoker Tobacco Type: Amount or Packs/day: How Many Years: Alcohol Use: No Frequency: Quant:
--- NOTE | 2021-03-18 09:18 | HPC ---
[facility] [place] [address] PAIN MANAGEMENT CONSULTATION Name: SANDHYA NAVARRO Room #: REG Par[facility] Pierce.#: [id number] Admission: 03/17/21 Attend Phys: Hoda Ballard Discharge: Date of : 38 Report #: [id number] THIS REPORT FOR: cc: Missael Baptiste MD, Stanley P. MD Hocker,Hoda MARTE ~ DOC #: [id number] cc: Matthew Stack MD, Missael Baptiste, MD Hoda Ballard, RUSSIAN TEACHER DATE OF SERVICE: 03/17/2021 HISTORY OF PRESENT ILLNESS: The patient reports her pain is mostly located in her low back and left shoulder and knee. She describes it as a constant throbbing sensation that is well controlled with her current medications of oxycodone as well as her Ativan that she takes. The patient states that weightbearing does aggravate her pain and she is in a wheelchair today. Overall, she believes the medication as well as cold and rest are beneficial in decreasing her pain. Today, she reports that her sister who recently underwent a total knee replacement has hired some help for them around the house and that has been beneficial as well. The patient reports that Dr. Baptiste is worried about her weight loss. According to our records, she weighs 108 pounds today, which is down from 113 pounds in December. He is encouraging her to eat whatever she would like and has a followup visit within 2 weeks and hopefully will have gained 2 pounds. The patient reports that she has a good appetite and is unsure why she has lost this weight. ALLERGIES: PENICILLIN, MORPHINE, CODEINE, NEOMYCIN, CLINDAMYCIN, BACTROBAN, FENTANYL, DEMEROL and POLYMYXIN. CURRENT LIST OF MEDICATIONS: Oxycodone 15 mg q.i.d. p.r.n., lorazepam, gabapentin, lactobacillus, Zetia, Lidoderm, Voltaren gel, fish oil, Plavix, Caltrate, vitamin D3, Pepcid, guaifenesin, Benadryl, valacyclovir, Cymbalta, VESIcare, Nexium, aspirin, biotin, glucosamine, Zestril, Lasix, potassium, Lipitor, multivitamin, BuSpar, levothyroxine, and metoprolol. PQRS: 1. She has osteoarthritic changes involving her hands, legs, feet and arms. Denies any rheumatoid arthritis. 2. Height is 4 feet 9 inches, weight is 106, BMI is 23. 3. Vital signs: Blood pressure 126/56, pulse is 86, respirations 14, oxygen sat is 97%. Pain score is 3/10. 4. Fall risk, denies dizziness. Does need assistance with ambulation. She is in a wheelchair today. She has not fallen in the last 3 months. 5. The patient is on Plavix as well as medications for hypertension. 6. Her opioid therapy is greater than 6 weeks; therefore, an opioid signed [address] [address] PAIN MANAGEMENT CONSULTATION Name: SANDHYA NAVARRO Room #: ASHLEE Vazquez#: [id number] Admission: 03/17/21 Attend Phys: Hoda Ballard Discharge: Date of : 38 Report #: [id number] contract is on the chart. 7. Risk assessment is low. Functional assessment is 35/70. 8. Recreational drug use, she denies. She is a former smoker and does not drink alcohol. According to the prescription monitoring system, she is due to fill her medications today. She does take a benzodiazepine and fills that monthly as well. She is closely monitored by these medications and her sister does provide her medications for her. Her morphine mEq 80 is MME per day. PHYSICAL EXAMINATION: GENERAL: This is alert and orientated upbeat 80-year-old female who appears her stated age, rating her pain score today at 3/10. HEENT: Normocephalic, atraumatic. Extraocular eye muscles are intact. She is wearing a mask. MUSCULOSKELETAL: She has discomfort in the lumbosacral region of her back. Straight leg raising is positive bilaterally. Lower extremity strength is symmetrical at 5/5. She is in a wheelchair today. Able to stand with assistance. IMPRESSION: 1. Chronic intractable back pain, status post laminectomy syndrome. 2. Management of high risk medications under terms of written opioid agreement. 3. Chronic depression and anxiety. 4. Coronary artery disease with stent and on anticoagulation therapy. 5. Diffuse osteoarthritis. PLAN: 1. We discussed treatment options with the patient today. The patient would like renewal of her medications. She finds these beneficial allowing her to be as active as she is possible. We will have Dr. Matthew Stack send her oxycodone 15 mg #120 for today and again in 4-week release. 2. The patient does continue her benzodiazepine, Ativan, that she takes for her anxiety and depression, taking 1 mg tablets up to 4 times a day. Her sister does dispense all of her medications, but we did discuss the interaction of opioids and benzodiazepine today. Therefore, I believe that she needs a Narcan prescription at home. I do not believe that she would overdose on these medications, but this is in case of an emergency. I discussed this with them at length, describing it as such a person that has a bee reaction with the EpiPen. Scripts will be sent for her Narcan as well today and instruction sheet given to them and the family and instructed them to explain this to Medardo, their son. 3. We did discuss high protein ice cream such as FitFreeze and Halo that the patient may take, which she is trying to gain some weight. The patient does not like Ensure, she states. The patient will return in 2 months. I instructed to call for a timely appointment. [facility] [address] [place] [address] PAIN MANAGEMENT CONSULTATION Name: SANDHYA NAVARRO Room #: REG [facility].#: [id number] Admission: 03/17/21 Attend Phys: Hoda Ballard Discharge: Date of : 38 Report #: [id number] Time spent with the patient in consultation, reviewing recent studies and clinical notes and physician reports, physical examination and correlation of findings and medical documentation to determine possible treatment options 14 minutes. Time spent preparing for appointment, reviewing prescription monitoring reports, reviewing previous records and proposed treatment options and reviewing current medications 5 minutes. Time spent preparing and sending electronic prescriptions with collaborating physician, Dr. Matthew Stack and documentation of visit and plan of treatment 6 minutes. Total time spent 26 minutes. PAUL Phillips/MICHAELLE/LUCI <ELECTRONICALLY SIGNED> By: Hoda Ballard 03/18/21 0918 1433 0014 Hoda mon
== END ==
LOC: PAIN 10:30
PROVIDERS: ATTEND Clinical Nurse Specialist Adult Health
DX: I25.10 Atherosclerotic heart disease of native coronary artery without angina pectoris (principal); G89.4 Chronic pain syndrome; F32.9 Major depressive disorder, single episode, unspecified; F41.9 Anxiety disorder, unspecified; Z88.0 Allergy status to penicillin; Z88.5 Allergy status to narcotic agent; Z88.1 Allergy status to other antibiotic agents; Z79.891 Long term (current) use of opiate analgesic; Z79.899 Other long term (current) drug therapy

== ENCOUNTER → 2021-05-11 | Outpatient (CLI) | payer OTHER, BC ==
[~2021-05-11] VITALS: Ht 144.8 cm; Wt 48.6 kg
[2021-05-11 14:30] VITALS: BP 107/52
--- NOTE | 2021-05-11 14:42 | NUR ---
Pain Clinic Assessment: 1. History of Osteoarthritis: B/L HANDS BACK B/L LEGS B/L FEET B/L ARMS History of Rheumatoid Arthritis: Not Applicable 2. Height: 4 ft. 9 in. 144.8 cm. Weight: 107.2 lb. oz. 48.625 kg. Patient's BMI: 23.2 3. Vital Signs: BP: 107/52 Pulse: 89 Resp: 16 Temp: 02 Sat: 96 ECG Mon: 4. Pain Intensity: 3 5. Fall Risk: Dizziness: N Needs help standing or walking: Y Fallen in the last 3 months: Y Fall risk comments: 6. Patient on Blood Thinner: Clopidogrel Bisulf(Plavix 7. History of Hypertension: Y 8. Opioid Therapy greater than 6 weeks: Y Opiate Contract Signed: 09/29/16 9. Risk Assessment Tool Provided: LOW-0 10. Functional Assessment Tool: 35/70 11. Recreational Drug Use: Never Drug Type: Tobacco Use: Former Smoker Tobacco Type: Amount or Packs/day: How Many Years: Alcohol Use: No Frequency: Quant:
== END ==
LOC: PAIN 09:48
PROVIDERS: ATTEND Clinical Nurse Specialist Adult Health
DX: Z76.0 Encounter for issue of repeat prescription (principal); M96.1 Postlaminectomy syndrome, not elsewhere classified; G89.29 Other chronic pain; F32.89 Other specified depressive episodes; F41.8 Other specified anxiety disorders; I10 Essential (primary) hypertension; I25.10 Atherosclerotic heart disease of native coronary artery without angina pectoris; M19.072 Primary osteoarthritis, left ankle and foot; M19.071 Primary osteoarthritis, right ankle and foot; Z79.891 Long term (current) use of opiate analgesic; Z79.899 Other long term (current) drug therapy; Z88.1 Allergy status to other antibiotic agents; Z88.0 Allergy status to penicillin; Z88.8 Allergy status to other drugs, medicaments and biological substances; Z88.5 Allergy status to narcotic agent; Z79.01 Long term (current) use of anticoagulants

== ENCOUNTER 2021-05-22 15:36 | Emergency (ER) | payer OTHER, BC ==
[~2021-05-22] VITALS: Ht 149.9 cm; Wt 48.5 kg
[2021-05-22 17:13] VITALS: BP 116/56
== END 2021-05-22 17:13 | disposition home or self-care (01) ==
LOC: ER 15:36
DX: S43.401A Unspecified sprain of right shoulder joint, initial encounter (principal); Z79.2 Long term (current) use of antibiotics; Z79.82 Long term (current) use of aspirin; Z88.6 Allergy status to analgesic agent; Z88.1 Allergy status to other antibiotic agents; Z88.0 Allergy status to penicillin; Z87.891 Personal history of nicotine dependence; W18.39XA Other fall on same level, initial encounter; Y93.89 Activity, other specified; Y92.89 Other specified places as the place of occurrence of the external cause; Y99.8 Other external cause status

== ENCOUNTER → 2021-08-03 | Outpatient (CLI) | payer OTHER, BC | LOC: PAIN 09:39 → TELEPC 11:07 → PAIN 11:07 | PROVIDERS: ATTEND Anesthesiology Pain Medicine | DX: G89.29 Other chronic pain (principal); M54.59 Other low back pain; M96.1 Postlaminectomy syndrome, not elsewhere classified; F34.89 Other specified persistent mood disorders; I25.10 Atherosclerotic heart disease of native coronary artery without angina pectoris; M19.90 Unspecified osteoarthritis, unspecified site; Z95.5 Presence of coronary angioplasty implant and graft; Z79.82 Long term (current) use of aspirin; Z79.899 Other long term (current) drug therapy ==

== ENCOUNTER → 2021-08-13 | Outpatient (CLI) | payer OTHER, BC ==
[~2021-08-13] VITALS: Ht 144.8 cm; Wt 52.3 kg
[2021-08-13 15:08] VITALS: BP 111/66
--- NOTE | 2021-08-13 16:01 | NUR ---
Pain Clinic Assessment: 1. History of Osteoarthritis: B/L HANDS BACK B/L LEGS B/L FEET B/L ARMS History of Rheumatoid Arthritis: Not Applicable 2. Height: 4 ft. 9 in. 144.8 cm. Weight: 115.2 lb. oz. 52.254 kg. Patient's BMI: 24.9 3. Vital Signs: BP: 111/66 Pulse: 101 Resp: 14 Temp: 02 Sat: 97 ECG Mon: 4. Pain Intensity: 3 5. Fall Risk: Dizziness: N Needs help standing or walking: Y Fallen in the last 3 months: Y Fall risk comments: 6. Patient on Blood Thinner: Clopidogrel Bisulf(Plavix 7. History of Hypertension: Y 8. Opioid Therapy greater than 6 weeks: Y Opiate Contract Signed: 09/29/16 9. Risk Assessment Tool Provided: LOW-0 10. Functional Assessment Tool: 35/70 11. Recreational Drug Use: Never Drug Type: Tobacco Use: Former Smoker Tobacco Type: Amount or Packs/day: How Many Years: Alcohol Use: No Frequency: Quant:
== END | disposition home or self-care (01) ==
LOC: PAIN 11:05
PROVIDERS: ATTEND Anesthesiology Pain Medicine
DX: M19.011 Primary osteoarthritis, right shoulder (principal); M77.8 Other enthesopathies, not elsewhere classified; I10 Essential (primary) hypertension; I25.10 Atherosclerotic heart disease of native coronary artery without angina pectoris; Z87.440 Personal history of urinary (tract) infections; Z79.899 Other long term (current) drug therapy

== ENCOUNTER 2021-09-18 15:20 | Inpatient (IN) | payer OTHER, BC ==
[~2021-09-18] VITALS: Ht 152.4 cm; Wt 53.4 kg
[2021-09-18] VITALS (17 sets, daily range): BP systolic 77–137; BP diastolic 38–107
[2021-09-18 15:51] LABS: ABSOLUTE NEUTROPHILS 8.9 thou/uL (1.4-8.2); BASOPHILS 0.3 % (0.0-2.0); EOSINOPHILS 0.1 % (0.0-3.0); HEMATOCRIT 38.6 % (37.0-47.0); HEMOGLOBIN 12.6 gm/dL (12.0-15.0); LYMPHOCYTES 12.2 % (24.0-44.0); MCH 32.5 pg (26.0-34.0); MCHC 32.7 g/dL (28.0-37.0); MCV 99.3 fL (80.0-100.0); MONOCYTES 5.7 % (1.0-8.0); PLATELET COUNT 175 thou/uL (150-400); POLYS 81.7 % (36.0-66.0); RBC 3.89 mil/uL (4.20-5.00); WBC 10.8 thou/uL (4.0-11.0)
[2021-09-18 16:25] LABS: CALCIUM 8.3 mg/dL (8.5-10.1); CREATININE 0.9 mg/dL (0.6-1.0); POTASSIUM 4.2 mmol/L (3.5-5.1)
[2021-09-18 16:44] LABS: ALBUMIN 2.1 g/dL (3.4-5.0); TOTAL BILIRUBIN 0.4 mg/dL (0.2-1.0); TOTAL PROTEIN 5.4 g/dL (6.4-8.2)
[2021-09-18 19:02] LABS: URINE BILIRUBIN NEGATIVE (Negative); URINE BLOOD 2+ (Negative); URINE CLARITY SL CLOUDY; URINE COLOR YELLOW; URINE GLUCOSE-RANDOM* NEGATIVE (Negative); URINE KETONES NEGATIVE (Negative); URINE NITRITE-REFLEX NEGATIVE (Negative); URINE PROTEIN (DIPSTICK) 1+ (Negative); URINE UROBILINOGEN 0.2 E.U./dl (0.2-1.0)
[2021-09-18 19:03] LABS: URINE LEUKOCYTES-REFLEX 2+ (Negative)
[2021-09-18 19:24] LABS: CASTS None Seen /LPF (None Seen); SQUAMOUS 4-10 Moderate /LPF (0-3); URINE RBC 3-10 Few /HPF (NONE SEEN)
[2021-09-18 19:25] LABS: CRYSTALS None Seen /LPF (None Seen)
[2021-09-18 22:18] LABS: HEMATOCRIT 34.9 % (37.0-47.0); MCH 31.9 pg (26.0-34.0); RBC 3.28 mil/uL (4.20-5.00)
[2021-09-18 22:19] LABS: HEMOGLOBIN 10.5 gm/dL (12.0-15.0); MCV 106.2 fL (80.0-100.0)
[2021-09-18 22:34] LABS: ALBUMIN 1.3 g/dL (3.4-5.0); CALCIUM 7.3 mg/dL (8.5-10.1); CREATININE 1.3 mg/dL (0.6-1.0); MAGNESIUM 4.8 mg/dL (1.8-2.4); POTASSIUM 3.8 mmol/L (3.5-5.1); TOTAL BILIRUBIN 0.2 mg/dL (0.2-1.0); TOTAL PROTEIN 3.6 g/dL (6.4-8.2)
[2021-09-18 23:16] LABS: INR 1.91; PROTIME 20.2 Seconds (10.5-12.1)
[2021-09-18 23:19] LABS: APTT 91.9 Seconds (24.5-32.8)
[2021-09-18 23:45] LABS: BE(vivo) -18.6 mmol/L (-2 to +3); HCO3 14.3 mmol/L (22.0-26.0); PCO2 VENOUS 71.3 mmHg (41.0-51.0); PO2 VENOUS 16.9 mmHg (35.0-45.0)
[2021-09-19] VITALS (12 sets, daily range): BP systolic 46–153; BP diastolic 23–88
--- NOTE | 2021-09-19 08:51 | NUR ---
PT TRANSFERRED FROM ED AT 2014. PT RESTLESS, ANXIOUS, LETHARGIC BUT STILL ABLE TO ANSWER MOST ORIENTATION QUESTIONS. AT 2099 PT HAD CHNAGE IN LOC. NO PALPABLE PULSE. CPR INITIATED AT 2113. ED DO, CHIEF PROJECTIONIST, ENGRAVER LETTERING AT BEDSIDE. PT REGAINED CONSCIOUSNESS AND RHYTHM. CONTINUED WITH POC. DR RUSHING AT BEDSIDE AROUND 2200. ORDERS RECIEVED AND INITITATED. CENTRAL LINE PLACED. FAMILY AT BEDSIDE AROUND 0000. SPOKE TO CHIEF PROJECTIONIST AND THIS RN. ANSERWED ALL QUESTIONS. PT HAD CHANGE IN LOC AND LOSS OF PULSE AT 0238 CPR INITIATED. PT FAMILY CALLED AND INSTRUCTED TO CONTINUE CPR. ER DO AT BEDSIDE. PT INTUBATED. TOD 0312. FAMILY INFORMED AND CAME TO SEE PT. PACKET COMPLETE AND PLACED IN CHART.
--- NOTE | 2021-09-19 10:00 | EKG ---
[address] [address] ELECTROCARDIOGRAM REPORT Name: SANDHYA NAVARRO Room #: 239-[facility] IN M.R.#: [id number] Admission: 09/18/21 Attend Phys: Pravin To MD Discharge: 09/19/21 Date of : 39 Report #: [id number] [facility] ED Test Date: 2021-09-18 Test Time: 17:10:55 Pat Name: SANDHYA NAVARRO Department: Room: 239 Gender: F Route Supervisor: nadine : 1940 Requested By: Jennifer Linares Order Number: [id number] MD: Stanley Lorenz Measurements Intervals [place] Rate: 116 P: 83 OR: 144 QRS: -10 QRSD: 91 T: 130 QT: 316 QTc: 439 Interpretive Statements Sinus tachycardia LVH with secondary repolarization abnormality Anterior infarct, old Compared to ECG 12/05/2020 17:35:10 Left ventricular hypertrophy now present Early repolarization now present Sinus rhythm no longer present Myocardial infarct finding still present Electronically Signed On 09-19-2021 9:59:39 SLOOP CAPTAIN by Stanley Lorenz [email or web address] <ELECTRONICALLY SIGNED> By: Stanley Lorenz MD 09/19/21 0959 09 09 Stanley Lorenz MD /[facility]
--- NOTE | 2021-09-22 07:08 | EKG ---
[address] [address] ELECTROCARDIOGRAM REPORT Name: SANDHYA NAVARRO Room #: 239-[facility] IN M.R.#: [id number] Admission: 09/18/21 Attend Phys: Pravin To MD Discharge: 09/19/21 Date of : 39 Report #: [id number] [facility] Test Date: 2021-09-18 Test Time: 21:28:31 Pat Name: SANDHYA NAVARRO Department: Room: 239 P Gender: F Design Engineer: MARIYA : 1940 Requested By: Hoda Sheriff Order Number: [id number] MD: Medardo Montalvo Measurements Intervals [place] Rate: 99 P: RI: QRS: 0 QRSD: 157 T: QT: 437 QTc: 561 Interpretive Statements NSR ARtifact Sinus tachycardia no longer present Electronically Signed On 09-22-2021 7:08:16 TUTORING MANAGER by Medardo Montalvo [email or web address] <ELECTRONICALLY SIGNED> By: Medardo Montalvo MD, [facility] 09/22/21 0708 2128 27 Medardo Montalvo MD, FACC /EPI
--- NOTE | 2021-09-22 07:09 | EKG ---
[address] [address] ELECTROCARDIOGRAM REPORT Name: SANDHYA NAVARRO Room #: 239-[facility] IN M.R.#: [id number] Admission: 09/18/21 Attend Phys: Pravin To MD Discharge: 09/19/21 Date of : 38 Report #: [id number] [facility] Test Date: 2021-09-18 Test Time: 22:03:56 Pat Name: SANDHYA NAVARRO Department: Room: 239 P Gender: F Casting Carrier: MARIYA : 1940 Requested By: Hoda Sheriff Order Number: [id number] MD: Medardo Montalvo Measurements Intervals [place] Rate: 110 P: 62 VA: 166 QRS: 1 QRSD: 89 T: 146 QT: 352 QTc: 477 Interpretive Statements Sinus tachycardia with irregular rate Borderline low voltage, extremity leads Abnormal R-wave progression, early transition Repol abnrm suggests ischemia, lateral leads Compared to ECG 09/18/2021 17:10:55 Possible ischemia now present Left ventricular hypertrophy no longer present Myocardial infarct finding no longer present Electronically Signed On 09-22-2021 7:08:49 HEALTH EQUIPMENT SERVICER by Medardo Montalvo [email or web address] <ELECTRONICALLY SIGNED> By: Medardo Montalvo MD, FACC 09/22/21707 02 02 Medardo Montalvo MD, FACC /EPI
== END 2021-09-19 03:12 | DRG 871 ==
LOC: ER 15:20 → EROBS 17:58 → ICU 20:19
PROVIDERS: Emergency Medicine; Internal Medicine Pulmonary Disease; Nurse Practitioner Family; ADMIT Hospitalist; ATTEND Hospitalist
DX: A41.9 Sepsis, unspecified organism (principal); J96.01 Acute respiratory failure with hypoxia; I82.403 Acute embolism and thrombosis of unspecified deep veins of lower extremity, bilateral; J93.9 Pneumothorax, unspecified; I46.9 Cardiac arrest, cause unspecified; R57.1 Hypovolemic shock; E86.0 Dehydration; Z20.822 Contact with and (suspected) exposure to COVID-19; I49.01 Ventricular fibrillation; Z88.0 Allergy status to penicillin; Z88.2 Allergy status to sulfonamides; Z88.8 Allergy status to other drugs, medicaments and biological substances; I25.2 Old myocardial infarction; I25.10 Atherosclerotic heart disease of native coronary artery without angina pectoris; K59.03 Drug induced constipation; T40.605A Adverse effect of unspecified narcotics, initial encounter; Y92.89 Other specified places as the place of occurrence of the external cause; E03.9 Hypothyroidism, unspecified; I95.9 Hypotension, unspecified
CPT/HCPCS: 10078